=== PATIENT | male | born 1950 | race Caucasian/White ===

== ENCOUNTER 2017-06-04 10:46 | Emergency (ER) | payer MEDICARE ==
[~2017-06-04] VITALS: Ht 170.2 cm; Wt 72.6 kg
[~2017-06-04 10:46] MED LIST: (None)20 M1 PO; ALBU3IS INH; ASPI81CH PO; ATOR80 PO; BENZ100A PO; Bactrim Ds Tab1 EACH PO; CEPH500 PO; CLOP75 PO; Cipro500 MG PO; Doxazosin Mesyla2 MG PO; ESCI5 PO; GABA300; GLIP5 PO; HYDACE5 PO; HYDACE5325; HYDACE7.5 PO; METF500 PO; MORP15ER PO; Norco 10-325 T1 EACH PO; Norco 7.5-3251 EACH PO; PREG150 PO; Prednisone20 MG PO; SENN187 PO; TAMS.4ER PO; TRAZ50 PO; VENLAFAXINE HC150 MG PO; Zithromax250 MG PO
[2017-06-04 12:12] LABS: BASOPHILS ABSOLUTE AUTO 0.08 K/mm3 (0.00-0.23); BASOPHILS PERCENT AUTO 1 % (0-2); EOSINOPHILS ABSOLUTE AUTO 0.23 K/mm3 (0.00-0.68); EOSINOPHILS PERCENT AUTO 2 % (0-6); Hematocrit 44.1 % (37.0-53.0); Hemoglobin 14.4 g/dL (13.5-17.5); IMMATURE GRAN ABSOLUTE AUTO 0.07 K/mm3 (0.00-0.10); IMMATURE GRAN PERCENT AUTO 1 % (0-1); LYMPHOCYTES ABSOLUTE AUTO 2.55 K/mm3 (0.84-5.20); LYMPHOCYTES PERCENT AUTO 23 % (21-46); MONOCYTES ABSOLUTE AUTO 0.68 K/mm3 (0.16-1.47); MONOCYTES PERCENT AUTO 6 % (4-13); Mean Corpuscular HGB 29.6 pg (26.0-34.0); Mean Corpuscular HGB Conc 32.7 g/dL (31.5-36.5); Mean Corpuscular Volume 91 fL (80-100); Mean Platelet Volume 10.3 fL (9.1-12.4); NEUTROPHILS ABSOLUTE AUTO 7.34 K/mm3 (1.96-9.15); NEUTROPHILS PERCENT AUTO 67 % (41-73); Platelet Count 337 K/mm3 (150-400); RDW Coefficient Variation 14.7 % (11.7-14.2); RDW Standard Deviation 49.3 fL (35.1-46.3); Red Blood Cell Count 4.87 M/mm3 (4.30-5.90); White Blood Cell Count 10.95 K/mm3 (4.00-11.30)
[2017-06-04 12:22] LABS: Alanine Aminotransfer (ALT/SGP 33 U/L (12-78); Albumin/Globulin Ratio 1.1 (0.8-1.8); Alk Phos 88 U/L (50-136); Anion Gap 8 mmol/L (6-16); Aspartate Aminotrans (AST/SGOT 21 U/L (12-37); Bilirubin, Total 0.6 mg/dL (0.1-1.0); Blood Urea Nitrogen 12 mg/dL (8-24); Bun/Creatinine Ratio 17.6 (12.0-20.0); CO2, Blood 27 mmol/L (21-32); Calcium, Blood 8.8 mg/dL (8.5-10.1); Chloride, Blood 106 mmol/L (98-108); Creatinine, Blood 0.68 mg/dL (0.60-1.20); Globulin, Blood 3.7 g/dL (2.2-4.0); Glomerular Filtration Rate >60 (60-); Glucose, Blood 90 mg/dL (70-99); Potassium, Blood 3.8 mmol/L (3.5-5.5); Sodium, Blood 141 mmol/L (136-145); Total Protein, Blood 7.7 g/dL (6.4-8.2)
[2017-06-04] MEDS ORDERED: PREG150 PO (14:41)
[2017-06-04 14:54] LABS: Influenza A Negative (NEGATIVE); Influenza B Negative (NEGATIVE)
== END 2017-06-04 16:32 | disposition home or self-care (01) ==
LOC: ER 10:46
PROVIDERS: Emergency Medicine
DX: J44.1 Chronic obstructive pulmonary disease with (acute) exacerbation (principal); J11.1 Influenza due to unidentified influenza virus with other respiratory manifestations; E11.9 Type 2 diabetes mellitus without complications; F17.210 Nicotine dependence, cigarettes, uncomplicated; Z86.73 Personal history of transient ischemic attack (TIA), and cerebral infarction without residual deficits
CPT/HCPCS: 36415; 71046; 80053; 82947; 85025; 87804; 94644; 96360; 96361; 99283; J7030

== ENCOUNTER 2018-08-26 18:15 | Inpatient (IN) | payer MEDICARE ==
[~2018-08-26] VITALS: Ht 175.3 cm; Wt 69.9 kg
[~2018-08-26 18:15] MED LIST changes: -METF500 PO; +METF500C PO
[2018-08-26 19:28] LABS: BASOPHILS ABSOLUTE AUTO 0.04 K/mm3 (0.00-0.23); BASOPHILS PERCENT AUTO 1 % (0-2); Hematocrit 41.6 % (37.0-53.0); Hemoglobin 13.6 g/dL (13.5-17.5); LYMPHOCYTES ABSOLUTE AUTO 1.92 K/mm3 (0.84-5.20); LYMPHOCYTES PERCENT AUTO 25 % (21-46); MONOCYTES ABSOLUTE AUTO 1.32 K/mm3 (0.16-1.47); MONOCYTES PERCENT AUTO 17 % (4-13); Mean Corpuscular HGB 29.4 pg (26.0-34.0); Mean Corpuscular HGB Conc 32.7 g/dL (31.5-36.5); Mean Corpuscular Volume 90 fL (80-100); Mean Platelet Volume 10.4 fL (9.1-12.4); Platelet Count 390 K/mm3 (150-400); RDW Coefficient Variation 15.3 % (11.7-14.2); RDW Standard Deviation 50.9 fL (35.1-46.3); Red Blood Cell Count 4.62 M/mm3 (4.30-5.90); White Blood Cell Count 7.81 K/mm3 (4.00-11.30)
[2018-08-26 19:39] LABS: EOSINOPHILS ABSOLUTE AUTO 0.02 K/mm3 (0.00-0.68); EOSINOPHILS PERCENT AUTO 0 % (0-6); IMMATURE GRAN ABSOLUTE AUTO 0.04 K/mm3 (0.00-0.10); IMMATURE GRAN PERCENT AUTO 1 % (0-1); NEUTROPHILS ABSOLUTE AUTO 4.47 K/mm3 (1.96-9.15); NEUTROPHILS PERCENT AUTO 57 % (41-73)
[2018-08-26 19:49] LABS: Alanine Aminotransfer (ALT/SGP 13 U/L (12-78); Albumin, Blood 2.6 g/dL (3.4-5.0); Albumin/Globulin Ratio 0.6 (0.8-1.8); Alk Phos 64 U/L (50-136); Anion Gap 10 mmol/L (6-16); Aspartate Aminotrans (AST/SGOT 11 U/L (12-37); Bilirubin, Total 0.3 mg/dL (0.1-1.0); Blood Urea Nitrogen 11 mg/dL (8-24); CO2, Blood 24 mmol/L (21-32); Calcium, Blood 8.1 mg/dL (8.5-10.1); Chloride, Blood 99 mmol/L (98-108); Creatinine, Blood 0.69 mg/dL (0.60-1.20); Glomerular Filtration Rate >60 (60-); Glucose, Blood 136 mg/dL (70-99); Potassium, Blood 3.4 mmol/L (3.5-5.5); Sodium, Blood 133 mmol/L (136-145); Total Protein, Blood 6.6 g/dL (6.4-8.2)
[2018-08-26] MEDS ORDERED: TAMS.4ER PO (20:15)
[2018-08-26] MEDS ORDERED: Norco 10-325 T1 EACH PO (20:16)
[2018-08-26 21:59] LABS: Source, Urine Clean Catch
[2018-08-26 22:01] LABS: Blood, Urine Neg (Neg); Glucose Qualitative, Urine Neg (Neg); Ketones, Urine 3+ (Neg); Leukocyte Esterase, Urine 1+ (Neg); Nitrite, Urine Neg (Neg); Protein, Urine 1+ (Neg); Specific Gravity, Urine 1.015 (1.003-1.022); Urobilinogen, Urine 2+ (Normal)
[2018-08-26 22:07] LABS: Bilirubin, Urine 1+ (Neg)
[2018-08-26 22:08] LABS: Appearance, Urine Clear (Clear); Color, Urine Amber (P-Yellow); Red Blood Cells, Urine Not Seen /hpf (0-2); White Blood Cells, Urine Rare /hpf (0-5)
[2018-08-26 22:09] LABS: Bacteria Few /hpf; Squamous Epithelial Cells Rare /hpf (Few)
[2018-08-27 06:48] LABS: International Normalized Ratio 1.21; Prothrombin Time Results 12.6 Sec (9.7-11.5)
[2018-08-27 06:59] LABS: Alanine Aminotransfer (ALT/SGP 9 U/L (12-78); Albumin, Blood 2.2 g/dL (3.4-5.0); Albumin/Globulin Ratio 0.7 (0.8-1.8); Alk Phos 56 U/L (50-136); Anion Gap 10 mmol/L (6-16); Aspartate Aminotrans (AST/SGOT 8 U/L (12-37); Bilirubin, Total 0.5 mg/dL (0.1-1.0); Blood Urea Nitrogen 10 mg/dL (8-24); Bun/Creatinine Ratio 16.1 (12.0-20.0); CO2, Blood 22 mmol/L (21-32); Calcium, Blood 7.6 mg/dL (8.5-10.1); Chloride, Blood 104 mmol/L (98-108); Creatinine, Blood 0.62 mg/dL (0.60-1.20); Globulin, Blood 3.3 g/dL (2.2-4.0); Glomerular Filtration Rate >60 (60-); Glucose, Blood 106 mg/dL (70-99); Potassium, Blood 3.3 mmol/L (3.5-5.5); Sodium, Blood 136 mmol/L (136-145); Total Protein, Blood 5.5 g/dL (6.4-8.2)
--- NOTE | 2018-08-27 14:37 | NUR ---
AT BEDSIDE: DR CHRISTENSEN AT BEDSIDE TO ASSESS PT. REPORTS TO THIS RN TO CONTINUE TO MONITOR PT ABDOMEN IS NOTED TO BE SOFT UPON PALPATION. NO SURGICAL INTERVENTION AT THIS TIME.
--- NOTE | 2018-08-27 16:30 | NUR ---
UPDATE: NO CHANGE TO HEART RATE DURING AND AFTER BOLUS, PT HR NOTED TO BE BETWEEN 180'S AND 200'S CALL TO DR MADRID. BLOOD PRESSURE NOTED TO INCREASE LEVOPHED PLACED ON HOLD. RECEIVED ORDER FOR METOPROLOL 2.5 MG IV STATE THEN TO REPEAT IF HR DOES NOT DECREASE. ALSO PT BREATHING IS NOTED TO BE SHALLOW AND TACHY BIPAP ORDERED 10/5 FIO2 OF 40%.
--- NOTE | 2018-08-27 16:43 | NUR ---
EKG AQUIRED: HR NOTED TO DECREASE DOWN TO 140-160'S EKG AQUIRED. DENISE MAY RN CALLED AND RECEIVED ORDERS FOR AMIODERONE FROM DR MADRID.
--- NOTE | 2018-08-27 16:50 | NUR ---
DR @ BEDSIDE: DR LOPEZ AT BEDSIDE DISCUSSES CHANGING STATUS TO SURGICAL.
--- NOTE | 2018-08-27 17:55 | NUR ---
BLADDER SCAN: ORDER TO BLADDER SCAN AND PT NOTED TO HAVE 470ML IN BLADDER. OVERHEAD PAGED DR LOPEZ AT THIS TIME, UNABLE TO GET A HOLD OF BY PHONE.
--- NOTE | 2018-08-27 18:04 | NUR ---
NEW ORDERS: RECEIVED ORDERS FROM DR LOPEZ TO PLACE TYSON CATH FOR RETENTION. ORDERS RECEIVED TO TRANSFER TO SURGICAL FLOOR.
--- NOTE | 2018-08-27 18:25 | NUR ---
SHIFT SUMMARY: PT HAS NOT APPEARED TO HAVE ANY ACUTE DISTRESS SINCE ARIVAL TO THE ICU. NO CHANGES NOTED IN ASSESSMENT. PT HAS REMAINED A/O X 3. MILD TO MODERATE PAIN R/T ABD DISTENTION AND CRAMPING. BLADDER SCAN NOTED TO HAVE 470ML OF FLUID IN BLADDER ORDER FOR TYSON. PT HAS DENIED NAUSEA, NO VOMITING NOTED. PT UP TO TOILET ONCE THIS SHIFT, BUT WAS UNABLE TO HAVE BM OR URINATE. PT STATES HE IS UNABLE TO SIGN ADMIT PAPERWORK WILL NOTIFY CATHRYN RN. PT IS NOTED TO HAVE CHRONIC SPEACH DIFFICULTIES AND SLURED SPEECH R/T HX OF CVA. VSS AT THIS TIME.
--- NOTE | 2018-08-27 18:30 | NUR ---
PICC: AFTER TALKING TO DR MADRID ORDER FOR NEW PICC LINE ORDERED NEEDS TO BE PLACED D/T LINE NOT IN CORRECT LOCATION. PICC RN NOTIFIED.
[2018-08-27 19:22] LABS: Source, Urine Catheter
[2018-08-27 19:24] LABS: Blood, Urine Neg (Neg); Glucose Qualitative, Urine Neg (Neg); Ketones, Urine 4+ (Neg); Leukocyte Esterase, Urine 1+ (Neg); Nitrite, Urine Neg (Neg); Protein, Urine 2+ (Neg); Urobilinogen, Urine 1+ (Normal)
--- NOTE | 2018-08-27 19:30 | NUR ---
ASSUME CARE: REPORT RECIEVED FROM OFF GOING RN KEVIN. RESTS QUIETLY WHEN UNDISTURBED. MONITOR INTACT SHOWING SINUS RHYTHM. HEART RATE 80'S. DENIES DISCOMFORT/NEED OF PAIN MED. LUNGS WITH COARSE WHEEZES T/O. ABDOMEN SOFT TENDER WITH TYMPANIC BOWEL SOUNDS. REPOSITIONS SELF IN BED. TOLERATES SWABS WITH ICE CHIPS. PEDAL PULSES PRESENT NO EDEMA NOTED. COOPERATIVE TO CARES. IN TO SEE. CONSENTS SIGNED FOR BLOOD AND RELEASE OF PATIENT INFORMATION. CODE WORD ESTABLISHED. CONTINUE TO MONITOR AND REPORT CHANGE IN PATIENT CONDITION. TYSON PATENT DRAINING DARK MANNIE URINE.
[2018-08-27 19:36] LABS: Bilirubin, Urine 1+ (Neg)
[2018-08-27 19:40] LABS: Appearance, Urine Hazy (Clear); Color, Urine Yellow (P-Yellow)
[2018-08-27 19:41] LABS: Bacteria Few /hpf; Squamous Epithelial Cells Few /hpf (Few)
[2018-08-28 04:09] LABS: Hematocrit 35.6 % (37.0-53.0); Hemoglobin 11.6 g/dL (13.5-17.5); Mean Corpuscular HGB 28.9 pg (26.0-34.0); Mean Corpuscular HGB Conc 32.6 g/dL (31.5-36.5); Mean Corpuscular Volume 89 fL (80-100); Platelet Count 407 K/mm3 (150-400); RDW Coefficient Variation 15.3 % (11.7-14.2); RDW Standard Deviation 50.1 fL (35.1-46.3); Red Blood Cell Count 4.01 M/mm3 (4.30-5.90)
[2018-08-28 04:26] LABS: Anion Gap 9 mmol/L (6-16); Blood Urea Nitrogen 8 mg/dL (8-24); Bun/Creatinine Ratio 14.1 (12.0-20.0); CO2, Blood 23 mmol/L (21-32); Calcium, Blood 7.5 mg/dL (8.5-10.1); Chloride, Blood 107 mmol/L (98-108); Creatinine, Blood 0.57 mg/dL (0.60-1.20); Glomerular Filtration Rate >60 (60-); Glucose, Blood 86 mg/dL (70-99); Potassium, Blood 3.4 mmol/L (3.5-5.5); Sodium, Blood 139 mmol/L (136-145)
[2018-08-28 04:38] LABS: BAND PERCENT MAN 15 % (0-8); BASOPHILS ABSOLUTE MAN 0.07 K/mm3 (0.00-0.23); BASOPHILS PERCENT MAN 1 % (0-2); EOSINOPHILS PERCENT MAN 0 % (0-6); LYMPHOCYTES PERCENT MAN 19 % (21-46); MONOCYTES ABSOLUTE MAN 0.94 K/mm3 (0.16-1.47); MONOCYTES PERCENT MAN 12 % (4-13); NEUTROPHILS ABSOLUTE MAN 5.37 K/mm3 (1.96-9.15); SEG NEUTROPHILS PERCENT MAN 53 % (41-73); TOTAL CELLS COUNTED 100
--- NOTE | 2018-08-28 05:46 | NUR ---
SHIFT SUMMARY: RESTS QUIETLY WHEN UNDISTURBED. LUNG SOUNDS COARSE WITH WHEEZES T/O RESPIRATIONS TACHY. 26-34. SPO2 95-98% WITH O2 IN PLACE AT 2L/MIN. STATES "I CAN'T BREATH " REFUSES UDN. ABDOMEN SOFT/TENDER WITH BOWEL SOUNDS. TYSON PATENT DRAINING DARK MANNIE URINE. PEDAL PULSES PRESENT NO EDEMA NOTED. SPEECH IS SLURRED HOWEVER UNDERSTANDABLE. SECONDARY TO PAST CVA. CONTIUE TO MONITOR AND REPORT CHANGE IN PATIENT CONDITION.
--- NOTE | 2018-08-28 11:28 | NUR ---
REASSESSMENT: PT HAD A CLEAR LIQUID BREAKFAST THIS MORNING AND TOLERATED IT WELL SO DIET ADVANCED TO ADA DIET. PT STATES HIS STOMACH IS FEELING A LITTLE BETTER TODAY. MIRALAX AND SENNA GIVEN THIS MORNING AND DULCOLAX SUPPOSITORY JUST GIVEN PER DR. VINCENT'S ORDERS TO GIVE THE SUPPOSITORY ABOUT 3 HOURS AFTER THE MIRALAX. PT'S FLOMAX ALSO GIVEN THIS MORNING AND SWITCHED TO AM DOSING PER DR. LOPEZ'S ORDER. PT HAS BEEN RESTING IN BED. HE ATE ICE CHIPS THROUGHOUT THE MORNING. LUNGS REMAIN COARSE AND WHEEZY BUT HE MAINTAINS SPO2 GREATER THAN 90% ON RA. HE WAS SR WHEN THE MONITOR WAS ON. BP STABLE. PLAN TO DC MARBELLA AFTER PT HAS A LARGE BM PER DR. LOPEZ'S ORDER. PT'S FRIEND CAME IN AND WAS UPDATED. CONTINUE TO MONITOR.
--- NOTE | 2018-08-28 12:32 | NUR ---
PT TRANSFERED TO RM 232. REPORT GIVEN TO KULDIP TAVERA. ALL BELONGINGS TRANSFERRED WITH PT. PT'S FRIEND WITH HIM AT TIME OF TRANSFER. PT TOLERATED TRANSFER WELL.
--- NOTE | 2018-08-28 12:50 | NUR ---
PT ARRIVED TO ROOM 232 FROM ICU PT HELPED INTO THE BATHROOM FOR BM PT WANTING TO TRY A SANDWHICH
--- NOTE | 2018-08-28 14:09 | NUR ---
pt in bed had small amt of his lunch family at bedside had loose bm
--- NOTE | 2018-08-28 17:53 | NUR ---
MORPHINE 2 MG IVP GIVEN PER NEW ORDER PO PAIN MEDS ON HOLD PER DR JIMENES AT THIS TIME WILL RE EVAL IN AM PER DR LOPEZ AND HOW PT CONSTIPATION IS RESOLVING PT IS EATING DINNER
--- NOTE | 2018-08-29 06:37 | NUR ---
LYING IN SEMI FOWLERS WITH EYES CLOSED. NO CHANGES SINCE START OF SHIFT. DENIES FURTHER NEEDS AT THIS TIME. SAFETY MEASURES IN PLACE. WILL GIVE HAND OFF TO ONCOMING SHIFT USING SBAR.
--- NOTE | 2018-08-29 18:00 | NUR ---
summary 3 bile colored liquid stools throughout shift. patient ambulated in halls x2, slightly unsteady on feet and needs reminded to slow gait. patient medicated x1 for pain in feet. patient denies nausea or abd pain
--- NOTE | 2018-08-29 18:06 | NUR ---
iv no iv access at this time, contacted procedure nurse who will place powerglide when available to do so
--- NOTE | 2018-08-30 06:29 | NUR ---
LYING IN SEMI FOWLERS WITH EYES CLOSED. HAS NOT SUCCESSFULLY EMPTIED BOWELS AFTER CONSUMING 2L OF GOLYTELY. SPIKED A NELSY THIS MORNING OF 100.7, TYLENOL GIVEN PER ORDERS. MEDICATED FOR PAIN X1 THIS SHIFT. NO FURTHER CHANGES SINCE START OF SHIFT. SAFETY MEASURES IN PLACE. WILL GIVE HAND OFF TO ONCOMING SHIFT USING SBAR.
--- NOTE | 2018-08-30 07:20 | NUR ---
REPORT FROM RESHMA CHRISTIANSEN. ASSUMED PT CARE.
--- NOTE | 2018-08-30 08:30 | NUR ---
PT ASSISTED BACK TO BED. PT STEADY ON FEET. SCANT LOOSE BROWN STOOL TO BSC. COMMODE CLEANED. FLOOR CLEANED. GARBAGE EMPTIED. PT DENIES PAIN AT THIS TIME, JUST "SOME DISCOMFORT". PT DENIES NAUSEA. ASSESSMENT CHARTED. PT MEDICATED PER EMAR.
--- NOTE | 2018-08-30 09:31 | NUR ---
DR GRECO TO ROOM FOR EVAL AND ASSESSMENT. PLAN TO LOOK OVER NOTES AND CONSULT SURGEON IF NOT DONE AND POSSIBLY REPEAT IMAGING.
--- NOTE | 2018-08-30 10:28 | NUR ---
PT RESTING IN POSITION OF COMFORT. DICK.
--- NOTE | 2018-08-30 11:45 | NUR ---
700ML GOLYTELY PLACED IN PLASTIC CUP. PT AWARE HE NEEDS TO CONT TO DRINK GOLYTELY.
--- NOTE | 2018-08-30 12:46 | NUR ---
PT MEDICATED PER EMAR. PT SITTING ON BSC. ICE WATER PROVIDED. PT DRINKING GOLYTELY.
--- NOTE | 2018-08-30 13:39 | NUR ---
PT MEDICATED WITH TYLENOL FOR ABD PAIN AND SCHED LYRICA. COMMODE CLEANED. TYSON EMPTIED.
--- NOTE | 2018-08-30 15:10 | NUR ---
PALLIATIVE CARE NURSE AT BEDSIDE. PT DRANK 400ML OF GOLYTELY. NO MORE STOOLS. PT C/O ABD PAIN 7/10, CRAMPING AND PRESSURE. WILL DISCUSS POSS USE OF TORADOL WITH PROVIDER.
--- NOTE | 2018-08-30 15:34 | NUR ---
DRESSING TO IV CHANGED. PT RAND WELL.
--- NOTE | 2018-08-30 15:37 | NUR ---
Initial Visit: Palliative Care Consult for AD/POLST. Pt is A&Ox3. He has difficulty with giving current year. He appears to be experiencing expressive aphasia as evidenced by difficulty with speaking words. Pt reports 7/10 pain in his abdomen and no benfet with Tylenol for pain. He reports the morphine is beneficial. Pt's grandson Rahul is present during visit. Pt reports that he lives at home with his in [place] and is of Gnosticist lizy. He reports adequate support from his family for any care needs. Pt reports that he uses a walker or cane when ambulating at home. He reports that he does not needs assistance with bathing and dressing. No issues with incontinence. Engaged in discussion regarding AD/POLST. Pt expresses interest in AD. Educated Pt on each section to complete including risk factors of life staining measures. Educated on importance of having a healthcare labor union business representative. Pt reports that he will complete POLST after discussing with his . Pt reports no other concerns. Spoke with Pt's bedside nurse Yassine regarding Pt's unmanged pain and options for pain control. Yassine is agreeable to contact Dr Cabrera and request Toradol or Tramadol for pain management. Goal is to avoid frequent use of opioid medications that may worsen current bowel issues. Plan: Will remain available for symptom management.
--- NOTE | 2018-08-30 16:02 | NUR ---
PT MEDICATED WITH 2MG IV MORPHINE. CALL LIGHT IN REACH. PT WATCHING TV.
--- NOTE | 2018-08-30 16:40 | NUR ---
PT STILL HAVING SOME ABD PAIN. PT DRINKING GOLYTELY.
--- NOTE | 2018-08-30 17:50 | NUR ---
PT RESTING IN POSITION OF COMFORT. WATCHING TV. SIPPING GOLYTELY.
--- NOTE | 2018-08-30 18:45 | NUR ---
PT DRANK ANOTHER 100ML OF GOLYTELY. VOL AT 700ML IN PLASTIC CUP. PT UP TO BSC. C/O ABD PAIN.
--- NOTE | 2018-08-30 19:09 | NUR ---
REPORT TO RESHMA CHRISTIANSEN.
[2018-08-31 04:38] LABS: BASOPHILS ABSOLUTE AUTO 0.02 K/mm3 (0.00-0.23); BASOPHILS PERCENT AUTO 0 % (0-2); EOSINOPHILS ABSOLUTE AUTO 0.07 K/mm3 (0.00-0.68); EOSINOPHILS PERCENT AUTO 1 % (0-6); Hematocrit 36.4 % (37.0-53.0); Hemoglobin 12.3 g/dL (13.5-17.5); IMMATURE GRAN PERCENT AUTO 1 % (0-1); LYMPHOCYTES PERCENT AUTO 12 % (21-46); MONOCYTES ABSOLUTE AUTO 1.16 K/mm3 (0.16-1.47); MONOCYTES PERCENT AUTO 9 % (4-13); Mean Corpuscular HGB 29.1 pg (26.0-34.0); Mean Corpuscular HGB Conc 33.8 g/dL (31.5-36.5); Mean Platelet Volume 9.7 fL (9.1-12.4); NEUTROPHILS ABSOLUTE AUTO 9.68 K/mm3 (1.96-9.15); NEUTROPHILS PERCENT AUTO 77 % (41-73); Platelet Count 480 K/mm3 (150-400); RDW Standard Deviation 47.6 fL (35.1-46.3); Red Blood Cell Count 4.22 M/mm3 (4.30-5.90); White Blood Cell Count 12.53 K/mm3 (4.00-11.30)
[2018-08-31 04:49] LABS: Mean Corpuscular Volume 86 fL (80-100)
--- NOTE | 2018-08-31 05:00 | NUR ---
CURRENTLY SITTING ON BSC, LINEN AND GOWN CHANGE COMPLTED. CALLED HOUSEKEEPING FOR FLOOR MOPPING AFTER PT HAD A LARGE LIQUID BM IN BED AND ON FLOOR TRYING TO AMBULATE TO BSC. SAFETY MEASURES IN PLACE. WILL CONTINUE TO DELTA.
[2018-08-31 05:16] LABS: Albumin, Blood 1.9 g/dL (3.4-5.0); Anion Gap 9 mmol/L (6-16); Blood Urea Nitrogen 7 mg/dL (8-24); Bun/Creatinine Ratio 12.7 (12.0-20.0); CO2, Blood 28 mmol/L (21-32); Calcium, Blood 7.5 mg/dL (8.5-10.1); Chloride, Blood 99 mmol/L (98-108); Creatinine, Blood 0.55 mg/dL (0.60-1.20); Glomerular Filtration Rate >60 (60-); Glucose, Blood 106 mg/dL (70-99); Phosphorus, Blood 2.5 mg/dL (2.5-4.9); Potassium, Blood 2.5 mmol/L (3.5-5.5); Sodium, Blood 136 mmol/L (136-145)
--- NOTE | 2018-08-31 05:45 | NUR ---
SOILED FLOOR AGAIN AFTER HAVING GOTTEN HIMSELF BACK INTO BED WITHOUT CALLING FOR ASSISTANCE AND THEN EXITING THE BED RAPIDLY IN ORDER TO GET TO BSC. SAFETY MEASURES IN PLACE. WILL CONTINUE TO MONITOR.
--- NOTE | 2018-08-31 06:18 | NUR ---
LARGE LIQUID BROWN BM WITH LARGE PARTICULATES EMPTIED FROM BSC. PT'S ABDOMEN LESS DISTENDED. STATES THAT HE PASSED ALOT OF GAS WELL. SAFETY MEASURES IN PLACE. WILL CONTINUE TO MONITOR.
--- NOTE | 2018-08-31 06:20 | NUR ---
LYING IN SEMI FOWLERS WITH EYES CLOSED. PARTIAL SUCCESS EMPTYING BOWELS AFTER SECOND ROUND OF GOLYTELY. MEDICATED FOR PAIN X1 THIS SHIFT. NO FURTHER CHANGES SINCE START OF SHIFT. SAFETY MEASURES IN PLACE. WILL GIVE HAND OFF TO ONCOMING SHIFT USING SBAR.
--- NOTE | 2018-08-31 06:54 | NUR ---
X-RAY AT BEDSIDE TO TAKE PT FOR ABD SERIES ORDERED.
--- NOTE | 2018-08-31 07:05 | NUR ---
PT RETURNED FROM IMAGING. ON BSC.
--- NOTE | 2018-08-31 08:00 | NUR ---
PT BACK IN BED, APPEARS TO BE RESTING, EYES CLOSED. RESP EVEN AND NON LABORED.
--- NOTE | 2018-08-31 08:35 | NUR ---
PT MEDICATED WITH SCHEDULED MEDS PER EMAR. C/O MILD ABD PAIN, TYLENOL PROVIDED. ASSESSMENT CHARTED. CALL LIGHT IN REACH. PT ABD STILL DISTENDED BY SOFT.
--- NOTE | 2018-08-31 09:55 | NUR ---
DR GRECO TO ROOM FOR EVAL AND ASSESSMENT. PT TO BE NPO UNTIL DR FERMIN TRIMBLEALS. PT AWARE, DR GRECO TO SPEAK WITH DR CHRISTENSEN.
--- NOTE | 2018-08-31 10:10 | NUR ---
DC STAFF RESPIRATORY THERAPIST TO ROOM TO DISCUSS POTENTIAL HOME NEEDS WITH PT. DC STAFF RESPIRATORY THERAPIST GEOVANY HAD A HARD TIME UNDERSTANDING PT.
--- NOTE | 2018-08-31 11:00 | NUR ---
PT TO IMAGING FOR CT VIA WC.
--- NOTE | 2018-08-31 11:18 | NUR ---
PT RETURNED FROM IMAGING. STOOLED HIMSELF.
--- NOTE | 2018-08-31 11:42 | NUR ---
AFTER RETURNING FROM IMAGING PT HAD STOOLED HIMSELF. ASSISTED PT TO SHOWER AND BATHED HIM. BED CHANGED, COMMODE AND TYSON EMPTIED. PT IN CLEAN GOWN AND SOCKS. ASSISTED BACK TO BED, IV K STARTED PER EMAR.
--- NOTE | 2018-08-31 14:19 | NUR ---
DR CHRISTENSEN TO ROOM FOR RE-EVAL AND UPDATE. PLAN TO ALLOW SIPS AND CHIPS, LABS TOMORROW AND SEE HOW HE FEELS TOMORROW. EXPLAINED TO PT THAT CT DOESNT SHOW WORSENING OF SWELLING/INFLAMMATION BUT THAT THERE IS STILL A SIG AMOUNT OF STOOL IN INTESTINES.
--- NOTE | 2018-08-31 16:03 | NUR ---
RESP STAFF AT BEDSIDE FOR NEB. PT MEDICATED WITH 2MG MORPHINE FOR C/O PAIN TO FOOT. PT BACK IN BED. DENIES NAUSEA.
--- NOTE | 2018-08-31 16:45 | NUR ---
PT MORE COMFORTABLE AT THIS TIME.
--- NOTE | 2018-08-31 17:15 | NUR ---
PT UP TO BSC. FAMILY AT BEDSIDE.
--- NOTE | 2018-08-31 17:45 | NUR ---
PT BACK TO BED. SCANT BM NOTED. TYSON EMPTIED.
[2018-09-01 03:59] LABS: BASOPHILS ABSOLUTE AUTO 0.02 K/mm3 (0.00-0.23); BASOPHILS PERCENT AUTO 0 % (0-2); EOSINOPHILS ABSOLUTE AUTO 0.09 K/mm3 (0.00-0.68); EOSINOPHILS PERCENT AUTO 1 % (0-6); Hematocrit 33.8 % (37.0-53.0); Hemoglobin 11.3 g/dL (13.5-17.5); IMMATURE GRAN ABSOLUTE AUTO 0.08 K/mm3 (0.00-0.10); IMMATURE GRAN PERCENT AUTO 1 % (0-1); LYMPHOCYTES ABSOLUTE AUTO 1.79 K/mm3 (0.84-5.20); LYMPHOCYTES PERCENT AUTO 16 % (21-46); MONOCYTES ABSOLUTE AUTO 1.29 K/mm3 (0.16-1.47); MONOCYTES PERCENT AUTO 11 % (4-13); Mean Corpuscular HGB 28.8 pg (26.0-34.0); Mean Corpuscular HGB Conc 33.4 g/dL (31.5-36.5); Mean Corpuscular Volume 86 fL (80-100); Mean Platelet Volume 9.4 fL (9.1-12.4); NEUTROPHILS ABSOLUTE AUTO 8.08 K/mm3 (1.96-9.15); NEUTROPHILS PERCENT AUTO 71 % (41-73); Platelet Count 473 K/mm3 (150-400); RDW Coefficient Variation 15.2 % (11.7-14.2); RDW Standard Deviation 47.8 fL (35.1-46.3); Red Blood Cell Count 3.92 M/mm3 (4.30-5.90); White Blood Cell Count 11.35 K/mm3 (4.00-11.30)
[2018-09-01 04:14] LABS: Anion Gap 8 mmol/L (6-16); Blood Urea Nitrogen 7 mg/dL (8-24); Bun/Creatinine Ratio 13.8 (12.0-20.0); CO2, Blood 28 mmol/L (21-32); Calcium, Blood 7.5 mg/dL (8.5-10.1); Chloride, Blood 100 mmol/L (98-108); Creatinine, Blood 0.51 mg/dL (0.60-1.20); Glomerular Filtration Rate >60 (60-); Glucose, Blood 91 mg/dL (70-99); Potassium, Blood 2.6 mmol/L (3.5-5.5); Sodium, Blood 136 mmol/L (136-145)
--- NOTE | 2018-09-01 07:45 | NUR ---
TEMP IN ROOM TURNED DOWN WILL RE CHECK PT TEMP ALSO WILL ENCOURAGE IS RT BY EARLIER FOR NEB TX
--- NOTE | 2018-09-01 07:55 | NUR ---
SUMMARY I CALLED HOSPITALIST REMEDIOS REGARDING R/A SATS OF 86% WITH O2 2L PLACED.PT DENIED CP OR SOB. RT AND NURSE ALREADY WORKING WITH PT ON FLUTTER AND I.S. FOLLOWING INITIAL ASSESMENT OF RESP STATUS AND REVIEW OF ABD CT FINDINGS REGARDING LUNGS.DISCUSSED CURRENT ASSESSMENT MED HX,CURRENT VS,ALSO CONFIRMED REGARDING TELE IT WAS REMOVED DURING DAY AND WAS RECEIVED PER TILE ROOFER.I ALSO DISCUSSED TYSON ORDER PRIOR WAS TO D/C HOWEVER REPORTED TO THIS RN AND NOTED IN HOPSITALIST NOTE TO BE LEFT IN DUE TO RETENTION UNTIL FURTHER BMS AND AT PRESENT PT PASSING ONLY MUDDY WATER WITH LARGELY DISTENDED ABDOMEN, SEE ORDERS RECEIVED. PT RECEIVING MORPHINE IV FOR PAIN. FAMILY IN AND OUT OF ROOM AND CALLING WITH PT PERMISSION TO GIVE INFO. EACH WITH MULTIPLE QUESTIONS AND TIME INTENSIVE.EACH LEFT NUMBERS TO BE CALLED IF DR ABLE TODAY. DAY RN AWARE.
--- NOTE | 2018-09-01 10:25 | NUR ---
DR GRECO BY TO SEE PT IV AND ORAL KCL GIVEN ALSO TO MEASURE ANY STOOL
--- NOTE | 2018-09-01 15:36 | NUR ---
RT AT BEDSIDE GIVING NEB TX
--- NOTE | 2018-09-01 18:51 | NUR ---
pt req another broth pt at bedside earlier pt given iv morphine for pain in r foot pt asking if he will be given anymore med for bowel care beside uymi
--- NOTE | 2018-09-02 00:09 | NUR ---
PTS TYSON WAS DCD PER ORDERS TONIGHT AND PT UNCOMFORTABLE WITH MINIMAL VOID BLADDER SCAN 397 ML. PTS BILAT PEDAL PULSES NOTED WEAKER TONIGHT THAN PREVIOUS NIGHT.ALTHOUGH PT REPORTS FULL SENSATION TO FEET. PT CONT TO APPEAR DECONDITIONED AND WEAK.ABLE TO WALK FEW STEPS ONLY WITH ASSIST DUE TO WEAKENESS.PT IS ABLE TO REPOSITION SELF IN BED WITH EXCEPTION OF HIGHER UP TOWARD HEAD.FAMILY ASKING ABOUT PHYSICAL THERAPY.PT TAKING SIPS AND CHIPS PO PER ORDERS,WITH NO MAINLINE IV ORDERS NOTED.PTS REPORTED PT STATING HE WISHED HE WAS . I QUESTIONED PT REGARDING THIS AND PT VERB HE DOES NOT WISH TO HARM SELF AND WOULD NOT HARM SELF. VERB JUST FRUSTRATED OVER LENGTH OF TIME IN HOSPITAL WITH SLOW PROGRESS. ALSO REPORTS "I CAN NOT AFFORD THIS" I ADVISED PT WE WILL HAVE SOMEONE FROM HOSPITAL TALK WITH HIM ON MONDAY REGARDING HIS FINANCIAL CONCERNS. I SPOKE WITH DR HEDRICK AND ADVISED OF ABOVE. I RECEIVED ORDERS FOR STRAIGHT CATH X1,IV MAINLINE, AND PT CX CONCERNS.
[2018-09-02 04:45] LABS: Albumin, Blood 1.9 g/dL (3.4-5.0); Anion Gap 7 mmol/L (6-16); Blood Urea Nitrogen 6 mg/dL (8-24); Bun/Creatinine Ratio 12.3 (12.0-20.0); CO2, Blood 29 mmol/L (21-32); Calcium, Blood 7.7 mg/dL (8.5-10.1); Chloride, Blood 105 mmol/L (98-108); Creatinine, Blood 0.49 mg/dL (0.60-1.20); Glomerular Filtration Rate >60 (60-); Glucose, Blood 95 mg/dL (70-99); Phosphorus, Blood 2.1 mg/dL (2.5-4.9); Sodium, Blood 141 mmol/L (136-145)
--- NOTE | 2018-09-02 06:02 | NUR ---
SUMMARY PTS DAUGHTER REMAINING AT BEDSIDE TONIGHT. SUPPORTIVE.PT REQUIRED MORPHINE FOR PAIN. PT REPOSITIONING SELF IN BED, BUT NEEDS TO REMINDING TO SPEND EQUAL TIME ON BACK AND BOTH SIDES RATHER THAN PREDOMINANTLY R SIDE PT CONSISTENTLY MOVING SELF BACK TO R SIDE AND CURLS UP.R HIP BONE BECOMING RED, WELL R ELBOW. DISCUSSED RISKS WITH PT AND DAUGHTER. PLACED MEPILEX TO R ELBOW,R HIP,AND HEELS. PT ALREADY WITH ONE TO COCCYX. ABD REMAINS DISTENDED ALTHOUGH APPEARS SLIGHTLY DECREASED FROM YESTERDAY. C/O NAUSEA X 1 WHEN PROD COUGH OF CREAMY WHITE MUCUS. NO EMESIS. PT WITH NO BMS TONIGHT. STRAIGHT CATHED X 1 PER ORDERS AND ALSO VOIDING/INCONTINENCE.MAINLINE FLUIDS INFUSING. TOLERATING PO SIPS/CHIPS.
--- NOTE | 2018-09-02 07:40 | NUR ---
pt req neb tx for sob rt by to give tx discussed giving pt nebs every 4 hrs today and mobilizes pt in chair and amb will encourage flutter ls coarse t/o with exp wheezing wet cough abd dist hypo btx4
--- NOTE | 2018-09-02 13:33 | NUR ---
pt back into bed meds given family at bedside encourged pt and family to have him stay up longer and mobilize
--- NOTE | 2018-09-02 15:30 | NUR ---
pt oob in chair pt's left so pt's daughter could talk with her dad superviser notified she talked with pt's daughter re his cond wanting to speak with ss message left also wit pt advocate pt req his daughter leave after his and his daughter had an argument in the room dr cartagena also by to see pt
--- NOTE | 2018-09-02 18:13 | NUR ---
PT AMB IN HALLWAY BACK IN CHAIR MEDS GIVEN EATING DINNER
--- NOTE | 2018-09-02 18:55 | NUR ---
pt back into bed at bedside
--- NOTE | 2018-09-02 23:00 | NUR ---
ASSISTED TO BCS, HAD BM AND URINE. ALL EMPTIED AND CHARTED PER SPECIAL NEEDS LIBRARIAN. SAFETY MEASURES IN PLACE. WILL CONTINUE TO MONITOR.
--- NOTE | 2018-09-03 02:00 | NUR ---
ASSISTED TO BSC AND BACK TO BED, 400ML DARK MANNIE URINE NOTED IN BSC. SAFETY MEASURES IN PLACE. WILL CONTINUE TO MONITOR.
--- NOTE | 2018-09-03 04:18 | NUR ---
EXITED BED TO BSC FOR SMALL LIQUID BM. BSC AND FLOOR CLEANED BY NURSING AFTER PT ASSISTED BACK TO BED, TOLERATED WELL. C/O PAIN LEVEL OF 8/10, GIVEN PRN MORPHINE PER MD ORDERS. AUDIBLE WHEEZING NOTED, REQUESTED PRN BREATHING TREATMENT VIA RT. SAFETY MEASURES IN PLACE. WILL CONTINUE TO MONITOR.
[2018-09-03 04:59] LABS: BASOPHILS ABSOLUTE AUTO 0.02 K/mm3 (0.00-0.23); BASOPHILS PERCENT AUTO 0 % (0-2); EOSINOPHILS ABSOLUTE AUTO 0.05 K/mm3 (0.00-0.68); EOSINOPHILS PERCENT AUTO 0 % (0-6); Hematocrit 36.3 % (37.0-53.0); IMMATURE GRAN ABSOLUTE AUTO 0.13 K/mm3 (0.00-0.10); IMMATURE GRAN PERCENT AUTO 1 % (0-1); LYMPHOCYTES ABSOLUTE AUTO 1.98 K/mm3 (0.84-5.20); LYMPHOCYTES PERCENT AUTO 18 % (21-46); MONOCYTES ABSOLUTE AUTO 1.03 K/mm3 (0.16-1.47); MONOCYTES PERCENT AUTO 9 % (4-13); Mean Corpuscular HGB 28.6 pg (26.0-34.0); Mean Corpuscular HGB Conc 33.1 g/dL (31.5-36.5); Mean Corpuscular Volume 87 fL (80-100); Mean Platelet Volume 9.4 fL (9.1-12.4); NEUTROPHILS ABSOLUTE AUTO 8.04 K/mm3 (1.96-9.15); NEUTROPHILS PERCENT AUTO 71 % (41-73); Platelet Count 537 K/mm3 (150-400); RDW Coefficient Variation 15.4 % (11.7-14.2); RDW Standard Deviation 48.6 fL (35.1-46.3); Red Blood Cell Count 4.19 M/mm3 (4.30-5.90); White Blood Cell Count 11.25 K/mm3 (4.00-11.30)
[2018-09-03 05:17] LABS: Anion Gap 7 mmol/L (6-16); Blood Urea Nitrogen 5 mg/dL (8-24); Bun/Creatinine Ratio 10.2 (12.0-20.0); CO2, Blood 28 mmol/L (21-32); Calcium, Blood 7.6 mg/dL (8.5-10.1); Chloride, Blood 102 mmol/L (98-108); Creatinine, Blood 0.49 mg/dL (0.60-1.20); Glomerular Filtration Rate >60 (60-); Glucose, Blood 114 mg/dL (70-99); Phosphorus, Blood 2.8 mg/dL (2.5-4.9); Potassium, Blood 3.1 mmol/L (3.5-5.5); Sodium, Blood 137 mmol/L (136-145)
--- NOTE | 2018-09-03 06:36 | NUR ---
LYING IN SEMI FOWLERS WITH EYES CLOSED. MEDICATED FOR PAIN X2 THIS SHIFT. HAS HAD 3 SMALL BM. NO FURTHER CHANGES SINCE START OF SHIFT. SAFETY MEASURES IN PLACE. WILL GIVE HAND OFF TO ONCOMING SHIFT USING SBAR.
--- NOTE | 2018-09-03 17:46 | NUR ---
SHIFT SUMMARY PT SHOWS INCREASED ABDOMINAL DISTENTION. NO BM AND PT STATES NO PASSING OF GAS DURING SHIFT. PT IS ALERT AND ORIENTED AND ABLE TO TRANSFER TO BSC. PLAN IS FOR A CONSERVATIVE APPROACH TO MOVE BLOCKAGE. BOWEL CARE AND MIRALAX. PT IS ABLE TO URINATE, YELLOW URINE OUTPUT.
[2018-09-04 04:39] LABS: BASOPHILS ABSOLUTE AUTO 0.03 K/mm3 (0.00-0.23); BASOPHILS PERCENT AUTO 0 % (0-2); EOSINOPHILS ABSOLUTE AUTO 0.04 K/mm3 (0.00-0.68); EOSINOPHILS PERCENT AUTO 0 % (0-6); Hematocrit 35.4 % (37.0-53.0); Hemoglobin 11.6 g/dL (13.5-17.5); IMMATURE GRAN ABSOLUTE AUTO 0.13 K/mm3 (0.00-0.10); IMMATURE GRAN PERCENT AUTO 1 % (0-1); LYMPHOCYTES ABSOLUTE AUTO 1.87 K/mm3 (0.84-5.20); LYMPHOCYTES PERCENT AUTO 16 % (21-46); MONOCYTES ABSOLUTE AUTO 1.07 K/mm3 (0.16-1.47); MONOCYTES PERCENT AUTO 9 % (4-13); Mean Corpuscular HGB Conc 32.8 g/dL (31.5-36.5); Mean Corpuscular Volume 89 fL (80-100); Mean Platelet Volume 9.3 fL (9.1-12.4); NEUTROPHILS ABSOLUTE AUTO 8.29 K/mm3 (1.96-9.15); NEUTROPHILS PERCENT AUTO 73 % (41-73); Platelet Count 510 K/mm3 (150-400); RDW Coefficient Variation 15.4 % (11.7-14.2); RDW Standard Deviation 50.5 fL (35.1-46.3); White Blood Cell Count 11.43 K/mm3 (4.00-11.30)
[2018-09-04 04:56] LABS: Albumin, Blood 1.9 g/dL (3.4-5.0); Anion Gap 6 mmol/L (6-16); Blood Urea Nitrogen 6 mg/dL (8-24); Bun/Creatinine Ratio 11.4 (12.0-20.0); CO2, Blood 30 mmol/L (21-32); Calcium, Blood 7.6 mg/dL (8.5-10.1); Chloride, Blood 103 mmol/L (98-108); Creatinine, Blood 0.53 mg/dL (0.60-1.20); Glomerular Filtration Rate >60 (60-); Glucose, Blood 102 mg/dL (70-99); Phosphorus, Blood 2.7 mg/dL (2.5-4.9); Potassium, Blood 3.3 mmol/L (3.5-5.5); Sodium, Blood 139 mmol/L (136-145)
--- NOTE | 2018-09-04 06:14 | NUR ---
LYING IN SEMI FOWLERS WITH EYES CLOSED. MEDICATED FOR PAIN X1 THIS SHIFT. IS PRODUCING GAS AND HAD 1 VERY SMALL BM. NO FURTHER CHANGES SINCE START OF SHIFT. SAFETY MEASURES IN PLACE. WILL GIVE HAND OFF TO ONCOMING SHIFT USING SBAR.
--- NOTE | 2018-09-04 17:58 | NUR ---
SHIFT SUMMARY PT REPORTS PASSING GAS DURING SHIFT. NO BM OUT. ABDOMEN DISTENDED. PT CALLED FOR BREATHING TREATMENT X1 DURING SHIFT. SOME CONGESTION ENCOURAGE USE OF FLUTTER VALVE. PAIN X2 DURING SHIFT.
[2018-09-05 05:06] LABS: BASOPHILS ABSOLUTE AUTO 0.02 K/mm3 (0.00-0.23); BASOPHILS PERCENT AUTO 0 % (0-2); EOSINOPHILS ABSOLUTE AUTO 0.06 K/mm3 (0.00-0.68); EOSINOPHILS PERCENT AUTO 1 % (0-6); Hematocrit 36.3 % (37.0-53.0); Hemoglobin 11.9 g/dL (13.5-17.5); IMMATURE GRAN ABSOLUTE AUTO 0.17 K/mm3 (0.00-0.10); IMMATURE GRAN PERCENT AUTO 2 % (0-1); LYMPHOCYTES ABSOLUTE AUTO 1.84 K/mm3 (0.84-5.20); LYMPHOCYTES PERCENT AUTO 17 % (21-46); MONOCYTES ABSOLUTE AUTO 0.97 K/mm3 (0.16-1.47); MONOCYTES PERCENT AUTO 9 % (4-13); Mean Corpuscular HGB 29.3 pg (26.0-34.0); Mean Corpuscular HGB Conc 32.8 g/dL (31.5-36.5); Mean Corpuscular Volume 89 fL (80-100); Mean Platelet Volume 9.5 fL (9.1-12.4); NEUTROPHILS PERCENT AUTO 73 % (41-73); Platelet Count 558 K/mm3 (150-400); RDW Coefficient Variation 15.6 % (11.7-14.2); RDW Standard Deviation 51.7 fL (35.1-46.3); Red Blood Cell Count 4.06 M/mm3 (4.30-5.90); White Blood Cell Count 11.16 K/mm3 (4.00-11.30)
[2018-09-05 05:30] LABS: Alanine Aminotransfer (ALT/SGP 13 U/L (12-78); Albumin, Blood 2.1 g/dL (3.4-5.0); Albumin/Globulin Ratio 0.6 (0.8-1.8); Alk Phos 64 U/L (50-136); Anion Gap 7 mmol/L (6-16); Aspartate Aminotrans (AST/SGOT 6 U/L (12-37); Bilirubin, Total 0.5 mg/dL (0.1-1.0); Blood Urea Nitrogen 6 mg/dL (8-24); Bun/Creatinine Ratio 10.9 (12.0-20.0); CO2, Blood 28 mmol/L (21-32); Calcium, Blood 7.8 mg/dL (8.5-10.1); Chloride, Blood 103 mmol/L (98-108); Creatinine, Blood 0.55 mg/dL (0.60-1.20); Globulin, Blood 3.3 g/dL (2.2-4.0); Glomerular Filtration Rate >60 (60-); Glucose, Blood 94 mg/dL (70-99); Potassium, Blood 3.6 mmol/L (3.5-5.5); Sodium, Blood 138 mmol/L (136-145); Total Protein, Blood 5.4 g/dL (6.4-8.2)
--- NOTE | 2018-09-05 06:21 | NUR ---
LYING IN SEMI FOWLERS WITH EYES CLOSED. MEDICATED FOR PAIN X1 THIS SHIFT. IS PRODUCING GAS AND HAD 3 VERY SMALL BM'S. NO FURTHER CHANGES SINCE START OF SHIFT. SAFETY MEASURES IN PLACE. WILL GIVE HAND OFF TO ONCOMING SHIFT USING SBAR.
--- NOTE | 2018-09-05 19:39 | NUR ---
SHIFT SUMMARY PT CONTINUES TO HAVE LIQUID BROWN STOOLS. ABD REMAINS DISTENDED, FIRM AND TENDER. PAIN HAS BEEN MANAGED WITH IV MORPHINE. PT IS A SBA FOR AMBULATION BUT TRANSFERS TO THE BSC INDEPEDENTLY. PT TOLERATING A CLEAR LIQUID DIET. VSS. REPORT GIVEN TO SUSSY CHRISTIANSEN.
--- NOTE | 2018-09-06 05:32 | NUR ---
PT HAD NO ACUTE CHANGES T/O NIGHT; VSS. ABD DISTENDED/FIRM, BT HYPO, PT IS HAVING FREQUENT SMALL LIQ BM. PT RAND CLEAR LIQ PO, IS VOIDING LARGE AMTS URINE. PAIN MGD PER EMAR. PT UP OOB W/SBA, RAND WELL. WILL CONT TO MONITOR UNTIL REP GIVEN TO ONCOMING RN.
[2018-09-06 06:00] LABS: BASOPHILS ABSOLUTE AUTO 0.03 K/mm3 (0.00-0.23); BASOPHILS PERCENT AUTO 0 % (0-2); EOSINOPHILS ABSOLUTE AUTO 0.06 K/mm3 (0.00-0.68); EOSINOPHILS PERCENT AUTO 1 % (0-6); Hematocrit 36.9 % (37.0-53.0); Hemoglobin 11.8 g/dL (13.5-17.5); IMMATURE GRAN ABSOLUTE AUTO 0.16 K/mm3 (0.00-0.10); IMMATURE GRAN PERCENT AUTO 2 % (0-1); LYMPHOCYTES ABSOLUTE AUTO 1.51 K/mm3 (0.84-5.20); LYMPHOCYTES PERCENT AUTO 15 % (21-46); MONOCYTES ABSOLUTE AUTO 0.94 K/mm3 (0.16-1.47); MONOCYTES PERCENT AUTO 10 % (4-13); Mean Corpuscular Volume 91 fL (80-100); Mean Platelet Volume 9.4 fL (9.1-12.4); NEUTROPHILS ABSOLUTE AUTO 7.13 K/mm3 (1.96-9.15); NEUTROPHILS PERCENT AUTO 73 % (41-73); Platelet Count 576 K/mm3 (150-400); RDW Coefficient Variation 15.8 % (11.7-14.2); RDW Standard Deviation 52.6 fL (35.1-46.3); Red Blood Cell Count 4.07 M/mm3 (4.30-5.90); White Blood Cell Count 9.83 K/mm3 (4.00-11.30)
[2018-09-06 06:19] LABS: Alanine Aminotransfer (ALT/SGP 10 U/L (12-78); Albumin/Globulin Ratio 0.6 (0.8-1.8); Alk Phos 62 U/L (50-136); Anion Gap 5 mmol/L (6-16); Aspartate Aminotrans (AST/SGOT 10 U/L (12-37); Bilirubin, Total 0.2 mg/dL (0.1-1.0); Blood Urea Nitrogen 5 mg/dL (8-24); Bun/Creatinine Ratio 8.8 (12.0-20.0); CO2, Blood 32 mmol/L (21-32); Calcium, Blood 7.9 mg/dL (8.5-10.1); Chloride, Blood 105 mmol/L (98-108); Creatinine, Blood 0.57 mg/dL (0.60-1.20); Globulin, Blood 3.2 g/dL (2.2-4.0); Glomerular Filtration Rate >60 (60-); Glucose, Blood 96 mg/dL (70-99); Potassium, Blood 3.4 mmol/L (3.5-5.5); Sodium, Blood 142 mmol/L (136-145); Total Protein, Blood 5.2 g/dL (6.4-8.2)
--- NOTE | 2018-09-06 07:00 | NUR ---
PT REPORT FROM NURYS CHRISTIANSEN. ASSUMED PT CARE.
--- NOTE | 2018-09-06 07:12 | NUR ---
RESP STAFF TO ROOM FOR PT REQUESTED NEB. PT HAS NO COMPLAINTS AT THIS TIME.
--- NOTE | 2018-09-06 07:50 | NUR ---
ASSESSMENT CHARTED. PT HAS NO COMPLAINTS AT THIS TIME. ABD DISTENDED. 20G TO RIGHT WRIST. 1L NC O2 NOTED. BRIM EDGE TRIMMER AT BEDSIDE FOR VS.
--- NOTE | 2018-09-06 08:51 | NUR ---
PT MEDICATED PER EMAR BY OTHER STAFF FOR PRIMARY RN.
--- NOTE | 2018-09-06 10:36 | NUR ---
CARE ASSUMED OF PATIENT AT APPROXIMATELY 0915. PT ASSESSED BY THIS RN. SHIFT ASSESSMENT DOCUMENTATION BY AFSHAN BLACKMON RN REVIEWED. THIS RN AGREES WITH DOCUMENTATION BY AFSHAN BLACKMON RN. BOWEL SOUNDS ARE HYPO ACTIVE AND TYMPANIC. WILL CONTINUE TO MONITOR.
--- NOTE | 2018-09-06 16:51 | NUR ---
SHIFT SUMMARY PT REPORTS PAIN HAS BEEN INCREASED THIS SHIFT, PT IS GETTING IV MORPHINE FOR PAIN MANAGEMENT. ABD REMAINS DISTENDED AND TENDER. PT IS INDEPENDENT WHEN UP TO THE BEDSIDE COMMODE. DR. CHRISTENSEN WAS RE-CONSULTED THIS SHIFT. VSS. WILL MONITOR UNTIL REPORT.
--- NOTE | 2018-09-07 04:58 | NUR ---
PT HAD NO ACUTE CHANGES T/O NIGHT; VSS. PT CONT TO HAVE MULTIPLE LIQ BM'S, STOOL IS BECOMING SLIGHTLY THICKER IN CONSISTANCY. ABD IS DISTENDED, SOFT TO PALP. PT HAD NO C/O N/V, REP ABD PAIN MINIMAL. R FOOT PAIN MGD PER EMAR. PT UP OOB W/SBA, RAND WELL. PT USING CALL LIGHT FOR ASSISTANCE, WILL CONT TO MONITOR UNTIL REP GIVEN TO ONCOMING RN.
[2018-09-07 05:55] LABS: BASOPHILS ABSOLUTE AUTO 0.02 K/mm3 (0.00-0.23); BASOPHILS PERCENT AUTO 0 % (0-2); EOSINOPHILS ABSOLUTE AUTO 0.06 K/mm3 (0.00-0.68); EOSINOPHILS PERCENT AUTO 1 % (0-6); Hematocrit 36.3 % (37.0-53.0); Hemoglobin 11.7 g/dL (13.5-17.5); IMMATURE GRAN ABSOLUTE AUTO 0.14 K/mm3 (0.00-0.10); IMMATURE GRAN PERCENT AUTO 2 % (0-1); LYMPHOCYTES ABSOLUTE AUTO 2.07 K/mm3 (0.84-5.20); LYMPHOCYTES PERCENT AUTO 25 % (21-46); MONOCYTES ABSOLUTE AUTO 0.81 K/mm3 (0.16-1.47); MONOCYTES PERCENT AUTO 10 % (4-13); Mean Corpuscular HGB Conc 32.2 g/dL (31.5-36.5); Mean Corpuscular Volume 90 fL (80-100); Mean Platelet Volume 9.1 fL (9.1-12.4); NEUTROPHILS ABSOLUTE AUTO 5.13 K/mm3 (1.96-9.15); NEUTROPHILS PERCENT AUTO 62 % (41-73); Platelet Count 541 K/mm3 (150-400); RDW Coefficient Variation 15.9 % (11.7-14.2); RDW Standard Deviation 52.4 fL (35.1-46.3); Red Blood Cell Count 4.03 M/mm3 (4.30-5.90); White Blood Cell Count 8.23 K/mm3 (4.00-11.30)
[2018-09-07 06:30] LABS: Alanine Aminotransfer (ALT/SGP 9 U/L (12-78); Albumin/Globulin Ratio 0.6 (0.8-1.8); Alk Phos 64 U/L (50-136); Anion Gap 6 mmol/L (6-16); Aspartate Aminotrans (AST/SGOT 9 U/L (12-37); Bilirubin, Total 0.2 mg/dL (0.1-1.0); Blood Urea Nitrogen 3 mg/dL (8-24); Bun/Creatinine Ratio 5.4 (12.0-20.0); CO2, Blood 31 mmol/L (21-32); Calcium, Blood 7.8 mg/dL (8.5-10.1); Chloride, Blood 107 mmol/L (98-108); Creatinine, Blood 0.55 mg/dL (0.60-1.20); Globulin, Blood 3.2 g/dL (2.2-4.0); Glomerular Filtration Rate >60 (60-); Glucose, Blood 87 mg/dL (70-99); Potassium, Blood 3.4 mmol/L (3.5-5.5); Sodium, Blood 144 mmol/L (136-145); Total Protein, Blood 5.2 g/dL (6.4-8.2)
--- NOTE | 2018-09-07 15:11 | NUR ---
PICC LINE BEING PLACED NOW BY PICC RN.
--- NOTE | 2018-09-07 17:56 | NUR ---
SHIFT SUMMARY NO ACUTE CHANGES TODAY. VSS. MEDICATING WITH TYLENOL AND IV MORPHINE FOR PAIN. ADVANCED TO FULL LIQ DIET. PICC LINE PLACED TODAY FOR CPN. CPN INFUSING PER ORDERS. PT STILL PASSING GAS AND HAVING LIQ STOOLS. UP TO BSC WITH SBA. PLAN IS TO HAVE SURGERY ON Monday09/11/[address] CHRISTENSEN. USES CALL LIGHT APPROPRIATELY.
[2018-09-08 06:01] LABS: BASOPHILS ABSOLUTE AUTO 0.03 K/mm3 (0.00-0.23); BASOPHILS PERCENT AUTO 0 % (0-2); EOSINOPHILS ABSOLUTE AUTO 0.04 K/mm3 (0.00-0.68); EOSINOPHILS PERCENT AUTO 0 % (0-6); Hemoglobin 11.8 g/dL (13.5-17.5); IMMATURE GRAN ABSOLUTE AUTO 0.12 K/mm3 (0.00-0.10); IMMATURE GRAN PERCENT AUTO 1 % (0-1); LYMPHOCYTES ABSOLUTE AUTO 1.82 K/mm3 (0.84-5.20); LYMPHOCYTES PERCENT AUTO 20 % (21-46); MONOCYTES PERCENT AUTO 10 % (4-13); Mean Corpuscular HGB 28.6 pg (26.0-34.0); Mean Corpuscular HGB Conc 31.1 g/dL (31.5-36.5); Mean Corpuscular Volume 92 fL (80-100); Mean Platelet Volume 9.3 fL (9.1-12.4); NEUTROPHILS ABSOLUTE AUTO 6.17 K/mm3 (1.96-9.15); NEUTROPHILS PERCENT AUTO 68 % (41-73); Platelet Count 594 K/mm3 (150-400); RDW Coefficient Variation 15.9 % (11.7-14.2); RDW Standard Deviation 53.9 fL (35.1-46.3); Red Blood Cell Count 4.13 M/mm3 (4.30-5.90); White Blood Cell Count 9.08 K/mm3 (4.00-11.30)
--- NOTE | 2018-09-08 06:02 | NUR ---
SUMMARY: NO ACUTE CHANGE THIS SHIFT. VSS. PT HAD A HARD TIME SLEEPING DUE TO PAIN IN R FOOT. MEDICATED WITH MORPHINE PRN. PT CONTINUES TO HAVE FREQUENT LIQUID STOOLS. CPN IS INFUSING AND PT TOLERATING FULL LIQUID DIET. PT ABD IS DISTENDED, NO REPORT OF NAUSEA THIS SHIFT.PT A/O, USING CALL LIGHT. NO SAFETY CONCERNS AT THIS TIME.
[2018-09-08 06:18] LABS: Alanine Aminotransfer (ALT/SGP 10 U/L (12-78); Albumin, Blood 2.1 g/dL (3.4-5.0); Albumin/Globulin Ratio 0.6 (0.8-1.8); Alk Phos 66 U/L (50-136); Anion Gap 7 mmol/L (6-16); Aspartate Aminotrans (AST/SGOT 7 U/L (12-37); Bilirubin, Total 0.1 mg/dL (0.1-1.0); Blood Urea Nitrogen 5 mg/dL (8-24); Bun/Creatinine Ratio 10.1 (12.0-20.0); CO2, Blood 31 mmol/L (21-32); Calcium, Blood 8.1 mg/dL (8.5-10.1); Chloride, Blood 106 mmol/L (98-108); Globulin, Blood 3.4 g/dL (2.2-4.0); Glomerular Filtration Rate >60 (60-); Glucose, Blood 103 mg/dL (70-99); Magnesium, Blood 2.4 mg/dL (1.6-2.4); Phosphorus, Blood 2.8 mg/dL (2.5-4.9); Potassium, Blood 3.5 mmol/L (3.5-5.5); Sodium, Blood 144 mmol/L (136-145); Total Protein, Blood 5.5 g/dL (6.4-8.2); Triglycerides 109 mg/dL (30-160)
--- NOTE | 2018-09-08 17:29 | NUR ---
SHIFT SUMMARY. PT PASSING GAS AND LIQUID STOOLS. PT TRANSFERING TO BSC WITHOUT SOB. PT ASKED FOR BREATHING TREATMENT X1. COURSE LUNG SOUNDS. ENCOURAGE AMBULATION, FLUTTER VALVE, AND INCENTIVE SPIROMETRY. PT C/O RIGHT LEG PAIN THROUGHOUT SHIFT. MEDICATED WITH MORPHINE X2 DURING SHIFT. CPN INFUSING INTO RIGHT ARM AT 75ML/HR.
[2018-09-09 05:47] LABS: BASOPHILS ABSOLUTE AUTO 0.03 K/mm3 (0.00-0.23); BASOPHILS PERCENT AUTO 0 % (0-2); EOSINOPHILS ABSOLUTE AUTO 0.04 K/mm3 (0.00-0.68); EOSINOPHILS PERCENT AUTO 1 % (0-6); Hematocrit 36.1 % (37.0-53.0); Hemoglobin 11.7 g/dL (13.5-17.5); IMMATURE GRAN PERCENT AUTO 3 % (0-1); LYMPHOCYTES ABSOLUTE AUTO 2.08 K/mm3 (0.84-5.20); LYMPHOCYTES PERCENT AUTO 23 % (21-46); MONOCYTES ABSOLUTE AUTO 0.78 K/mm3 (0.16-1.47); MONOCYTES PERCENT AUTO 9 % (4-13); Mean Corpuscular HGB 29.2 pg (26.0-34.0); Mean Corpuscular HGB Conc 32.4 g/dL (31.5-36.5); Mean Corpuscular Volume 90 fL (80-100); Mean Platelet Volume 9.3 fL (9.1-12.4); NEUTROPHILS ABSOLUTE AUTO 5.65 K/mm3 (1.96-9.15); NEUTROPHILS PERCENT AUTO 64 % (41-73); Platelet Count 618 K/mm3 (150-400); RDW Coefficient Variation 15.7 % (11.7-14.2); RDW Standard Deviation 51.8 fL (35.1-46.3); Red Blood Cell Count 4.01 M/mm3 (4.30-5.90); White Blood Cell Count 8.88 K/mm3 (4.00-11.30)
--- NOTE | 2018-09-09 06:02 | NUR ---
SUMMARY: NO CHANGE TONIGHT. VSS, A/O. PT CONTINUES TO FREQUENTLY USE COMMODE INDEPENDENTLY, LIQUID BMS. REPORTS NEUROPATHY PAIN IN R FOOT. MEDICATED PER EMAR. PT SLEPT BETTER TONIGHT. I.S. AND FLUTTER VALVE ENCOURAGED. PT LUNGS ARE COURSE, STABLE ON 1L O2. NO SAFETY CONCERNS AT THIS TIME
[2018-09-09 06:13] LABS: Alanine Aminotransfer (ALT/SGP 13 U/L (12-78); Albumin, Blood 2.2 g/dL (3.4-5.0); Albumin/Globulin Ratio 0.6 (0.8-1.8); Alk Phos 68 U/L (50-136); Anion Gap 4 mmol/L (6-16); Aspartate Aminotrans (AST/SGOT 13 U/L (12-37); Bilirubin, Total 0.1 mg/dL (0.1-1.0); Blood Urea Nitrogen 8 mg/dL (8-24); Bun/Creatinine Ratio 18.3 (12.0-20.0); CO2, Blood 31 mmol/L (21-32); Calcium, Blood 8.2 mg/dL (8.5-10.1); Chloride, Blood 107 mmol/L (98-108); Creatinine, Blood 0.44 mg/dL (0.60-1.20); Globulin, Blood 3.6 g/dL (2.2-4.0); Glomerular Filtration Rate >60 (60-); Glucose, Blood 126 mg/dL (70-99); Magnesium, Blood 2.4 mg/dL (1.6-2.4); Phosphorus, Blood 2.8 mg/dL (2.5-4.9); Potassium, Blood 4.6 mmol/L (3.5-5.5); Sodium, Blood 142 mmol/L (136-145); Total Protein, Blood 5.8 g/dL (6.4-8.2)
--- NOTE | 2018-09-09 11:45 | NUR ---
DISCUSSED PT'S STATUS WITH DR PATIÑO.
--- NOTE | 2018-09-09 17:37 | NUR ---
SHIFT SUMMARY PT HAS BEEN UP TO BEDSIDE COMMODE MULTIPLE TIMES TODAY. TRANSFERS ON OWN. PT TOLERATING FLUIDS AND SOUP. PT HAD BREATHING TREATMENT THIS MORNING AND HAS BEEN ON O2 TODAY. PAIN HAS BEEN MANAGED WITH MEDICATIONS PER ORDERS. SEE EMAR. FAMILY HAS BEEN IN TO SEE PT TODAY. PT HAS DIFFICULTY VERBALLY COMMUNICATING D/T HX OF CVI. SEE HX.
[2018-09-10 06:02] LABS: Magnesium, Blood 2.4 mg/dL (1.6-2.4)
[2018-09-10 06:03] LABS: Phosphorus, Blood 3.4 mg/dL (2.5-4.9)
--- NOTE | 2018-09-10 06:42 | NUR ---
SHIFT SUMMARY PT A&O X4 T/O SHIFT. ABD SOFT; BTX4. CPN PER ORDERS. PAIN MANAGED PER EMAR. PT REFUSED SCD'S. PT UP TO BSC OFTEN. CALL LIGHT IN REACH; PT DEMONSTRATES USE. O2 VIA NC; CONT. OXIMITRY IN PLACE; PT DENIES SOB. WCTM UNTIL REPORT TO DAY SHIFT RN.
--- NOTE | 2018-09-10 14:30 | NUR ---
PT C/O R FOOT PAIN THROUGHOUT SHIFT. PT REFUSED COLD THERAPY AND ELEVATION. PT ALLOWED HEAT THERAPY AND STATED SLIGHT RELIEF. FAMILY AT BEDSIDE
--- NOTE | 2018-09-10 17:08 | NUR ---
DR CHRISTENSEN IN TO SEE PT. STATES SURG WILL BE FIRST THING TOMORROW MORNING.
--- NOTE | 2018-09-10 18:33 | NUR ---
PT REQUESTING PAIN MEDS FOR 9/10 R FOOT PAIN. OFFERED HEAT/COLD THERAPY, AND ELEVATION BUT PATIENT DECLINED. NEXT DOSE OF PAIN MEDS NOT DUE FOR ANOTHER 2 HRS.
[2018-09-11 06:31] LABS: BASOPHILS ABSOLUTE AUTO 0.04 K/mm3 (0.00-0.23); BASOPHILS PERCENT AUTO 0 % (0-2); EOSINOPHILS ABSOLUTE AUTO 0.08 K/mm3 (0.00-0.68); EOSINOPHILS PERCENT AUTO 1 % (0-6); Hematocrit 39.4 % (37.0-53.0); IMMATURE GRAN ABSOLUTE AUTO 0.34 K/mm3 (0.00-0.10); IMMATURE GRAN PERCENT AUTO 3 % (0-1); LYMPHOCYTES ABSOLUTE AUTO 3.04 K/mm3 (0.84-5.20); LYMPHOCYTES PERCENT AUTO 22 % (21-46); MONOCYTES PERCENT AUTO 8 % (4-13); Mean Corpuscular Volume 88 fL (80-100); Mean Platelet Volume 9.5 fL (9.1-12.4); NEUTROPHILS ABSOLUTE AUTO 9.01 K/mm3 (1.96-9.15); NEUTROPHILS PERCENT AUTO 66 % (41-73); Platelet Count 582 K/mm3 (150-400); RDW Coefficient Variation 15.8 % (11.7-14.2); RDW Standard Deviation 50.5 fL (35.1-46.3); Red Blood Cell Count 4.49 M/mm3 (4.30-5.90); White Blood Cell Count 13.61 K/mm3 (4.00-11.30)
--- NOTE | 2018-09-11 06:35 | NUR ---
PT TO DAY SURGERY [id number]
--- NOTE | 2018-09-11 06:37 | NUR ---
PT TO DAY SURGERY VIA [facility].
--- NOTE | 2018-09-11 06:38 | NUR ---
PT VSS T/O NIGHT. PAIN MGD PER EMAR. ABD SOFT LESS DISTENDED, PT HAD 1 BM THIS SHIFT. PT NPO POST MIDNIGHT FOR PLAN FOR OR TODAY. PT TO DAY SURGERY THIS AM. WILL REPORT TO DAY RN.
--- NOTE | 2018-09-11 07:00 | NUR ---
PT TO SEE HIM IN DAY SURG TAKEN BACK
[2018-09-11 07:05] LABS: Albumin, Blood 2.8 g/dL (3.4-5.0); Anion Gap 6 mmol/L (6-16); Blood Urea Nitrogen 13 mg/dL (8-24); CO2, Blood 31 mmol/L (21-32); Calcium, Blood 9.2 mg/dL (8.5-10.1); Chloride, Blood 102 mmol/L (98-108); Creatinine, Blood 0.54 mg/dL (0.60-1.20); Glomerular Filtration Rate >60 (60-); Glucose, Blood 112 mg/dL (70-99); Phosphorus, Blood 4.2 mg/dL (2.5-4.9); Potassium, Blood 4.6 mmol/L (3.5-5.5); Sodium, Blood 139 mmol/L (136-145)
--- NOTE | 2018-09-11 07:08 | NUR ---
SHIFT SUMMARY NO ACUTE CHANGES THIS SHIFT, VSS, 02 SATS >90% ON RA. PT TO DAY SURGERY THIS AM ON 09/11/18, PT REMAINED NPO AFTER MIDNIGHT, CONTINUED CPN. PT REPORTED OF PAIN IN BLE, MEDICATED PER ORDERS, PT DID NOT REPORT NAUSEA. PT HAD ONE SMALL BOWEL MOVEMENT THIS SHIFT. SBA TO BEDSIDE COMMODE, BED ALARM ON. PT DOES NOT ALWAYS CALL FOR ASSISTANCE, NEEDS REMINDING OCCASIONALLY. HX OF CVA WITH RIGHT SIDED WEAKNESS AND EXPRESSIVE APHASIA.
--- NOTE | 2018-09-11 08:16 | NUR ---
09/11/18 0816 Elayne Acosta PLACED BY BERTIN MUKHERJEE RN.
--- NOTE | 2018-09-11 11:40 | NUR ---
PT ARRIVED BACK TO ROOM 232 PT S/P SIGMOID COLECTOMY WITH OSTOMY PT HAS PROVENA DRESSING MIDLINE CDI AND OSTOMY NO DRAINAGE IN BAG STOMA BEEFY RED PT HAS EPIDURAL PT DENIES PAIN AT THIS TIME PT HAS GOOD SENSATION WITH EPIDURAL
--- NOTE | 2018-09-11 18:00 | NUR ---
PT WATCHING TV FAMILY AT BEDSIDE PT GRANDSON CALLED EARLIER ASKED IF I COULD GIVE INFO PT FAMILY STATED HE WOULD CALL HIM
--- NOTE | 2018-09-11 18:35 | NUR ---
TAlKED WITH DR FERMIN CRAMER PT HAVING STOOL THRU HIS OSTOMY OK TO EAT REG DIET
--- NOTE | 2018-09-11 20:44 | NUR ---
PT REPORTS FULL SENSATION TO ABD AREA. DECREASED SENSATION FROM GROIN TO UPPER-MID THIGH. EPIDURAL INSERTION SITE C/D/I, PT REPORTS FEELING PALPATION AROUND SITE, NO SIGNS OF REDNESS OR INFLAMATION, NO BUBBLING OR ABNORMAL FEELING OF SKIN AROUNS SITE.
[2018-09-12 06:17] LABS: BASOPHILS ABSOLUTE AUTO 0.03 K/mm3 (0.00-0.23); BASOPHILS PERCENT AUTO 0 % (0-2); EOSINOPHILS PERCENT AUTO 0 % (0-6); Hematocrit 35.1 % (37.0-53.0); Hemoglobin 11.4 g/dL (13.5-17.5); IMMATURE GRAN ABSOLUTE AUTO 0.25 K/mm3 (0.00-0.10); IMMATURE GRAN PERCENT AUTO 1 % (0-1); LYMPHOCYTES ABSOLUTE AUTO 1.95 K/mm3 (0.84-5.20); LYMPHOCYTES PERCENT AUTO 9 % (21-46); MONOCYTES ABSOLUTE AUTO 1.41 K/mm3 (0.16-1.47); MONOCYTES PERCENT AUTO 7 % (4-13); Mean Corpuscular HGB 29.2 pg (26.0-34.0); Mean Corpuscular HGB Conc 32.5 g/dL (31.5-36.5); Mean Corpuscular Volume 90 fL (80-100); Mean Platelet Volume 9.9 fL (9.1-12.4); NEUTROPHILS ABSOLUTE AUTO 17.72 K/mm3 (1.96-9.15); NEUTROPHILS PERCENT AUTO 83 % (41-73); Platelet Count 562 K/mm3 (150-400); RDW Standard Deviation 52.2 fL (35.1-46.3); White Blood Cell Count 21.36 K/mm3 (4.00-11.30)
[2018-09-12 06:33] LABS: Anion Gap 4 mmol/L (6-16); Blood Urea Nitrogen 15 mg/dL (8-24); Bun/Creatinine Ratio 26.5 (12.0-20.0); CO2, Blood 31 mmol/L (21-32); Calcium, Blood 8.6 mg/dL (8.5-10.1); Chloride, Blood 103 mmol/L (98-108); Creatinine, Blood 0.57 mg/dL (0.60-1.20); Glomerular Filtration Rate >60 (60-); Glucose, Blood 123 mg/dL (70-99); Potassium, Blood 4.6 mmol/L (3.5-5.5); Sodium, Blood 138 mmol/L (136-145)
--- NOTE | 2018-09-12 07:21 | NUR ---
SHIFT SUMMARY PT IS POD 1 SIGMOID COLECTOMY W/ COLOSTOMY PLACEMENT. PT IS PRODUCING LARGE AMOUNTS OF BROWN PUDDING-LIKE STOOL AND FLATUS. EPIDURAL IN PLACE, PT RATES HIS PAIN HIGH THIS MORNING BUT HE APPEARS COMFORTABLE AT REST. HE REPORTS DECREASED SENSATION TO L1-L2 OVERNIGHT, ABD SENSATION INTACT. TPN INFUSING PER ORDERS. HIS ABD DISTENTION IS MUCH IMPROVED. PT TAKING CLEAR LIQUIDS AT THIS TIME, TOLERATING WELL. EXPRESSIVE APHASIA, UNCHANGED FROM BASELINE. REPORT PASSED TO ONCOMING SHIFT.
--- NOTE | 2018-09-12 17:35 | NUR ---
SUMMARY PATIENT HAS DENIED NEED FOR PAIN MED POST OP. PATIENT STATES NO PAIN UNLESS MOVING OR COUGHING. RAND PO FLUIDS WITHOUT NAUSEA
--- NOTE | 2018-09-12 18:15 | NUR ---
1800 SUMMARY PATIENT REPORTS PAIN 8-10/10 THOUGH APPEARS RELAXED, WATCHING TV AND CONVERSING WITH VISITORS. ON FACE SCALE PATIENT APPEARS LEVEL 3-4/10. PATIENT DIFFICULT TO UNDERSTAND DUE TO EXPRESSIVE APHASIA. OSTOMY BEEEFY PINK STOMA WITH SOFT BROWN STOOL OUTPUT. PATIENT RAND PO FOOD AND FLUID WITHOUT NAUSEA
--- NOTE | 2018-09-13 04:37 | NUR ---
SUMMARY: PT IS POD2 FOR SIGMOID COLECTOMY. DOING WELL. EPIDURAL IS MANAGING PAIN, ALTHOUGH PT REPORTS ON GOING NEUROPATHY PAIN IN HIS R FOOT. MEDICATED PER EMAR. PT WOUND VAC AND OSTOMY DEVICE CHANGED THIS SHIFT DUE TO LEAK. STOMA IS WNL AND DRAINING LIQ BROWN STOOL. WAS ABLE TO DO SOME EDUCATING WITH PT WHILE I REPLACED PT'S COLOSTOMY BAG. EPIDURAL CHECKS WNL.TYSON IS DRAINING, TPN INFUSING. VSS, NO ACUTE CONCERNS THIS AM.
[2018-09-13 05:47] LABS: BASOPHILS ABSOLUTE AUTO 0.05 K/mm3 (0.00-0.23); BASOPHILS PERCENT AUTO 0 % (0-2); EOSINOPHILS ABSOLUTE AUTO 0.09 K/mm3 (0.00-0.68); EOSINOPHILS PERCENT AUTO 1 % (0-6); Hematocrit 35.3 % (37.0-53.0); Hemoglobin 11.3 g/dL (13.5-17.5); IMMATURE GRAN ABSOLUTE AUTO 0.24 K/mm3 (0.00-0.10); IMMATURE GRAN PERCENT AUTO 2 % (0-1); LYMPHOCYTES ABSOLUTE AUTO 2.91 K/mm3 (0.84-5.20); LYMPHOCYTES PERCENT AUTO 20 % (21-46); MONOCYTES ABSOLUTE AUTO 1.22 K/mm3 (0.16-1.47); MONOCYTES PERCENT AUTO 8 % (4-13); Mean Corpuscular Volume 91 fL (80-100); Mean Platelet Volume 10.1 fL (9.1-12.4); NEUTROPHILS ABSOLUTE AUTO 9.96 K/mm3 (1.96-9.15); NEUTROPHILS PERCENT AUTO 69 % (41-73); Platelet Count 497 K/mm3 (150-400); RDW Coefficient Variation 16.5 % (11.7-14.2); RDW Standard Deviation 54.5 fL (35.1-46.3); Red Blood Cell Count 3.89 M/mm3 (4.30-5.90); White Blood Cell Count 14.47 K/mm3 (4.00-11.30)
[2018-09-13 06:05] LABS: Albumin, Blood 2.4 g/dL (3.4-5.0); Anion Gap 2 mmol/L (6-16); Blood Urea Nitrogen 12 mg/dL (8-24); Bun/Creatinine Ratio 18.2 (12.0-20.0); CO2, Blood 29 mmol/L (21-32); Calcium, Blood 8.4 mg/dL (8.5-10.1); Chloride, Blood 109 mmol/L (98-108); Creatinine, Blood 0.66 mg/dL (0.60-1.20); Glomerular Filtration Rate >60 (60-); Glucose, Blood 133 mg/dL (70-99); Phosphorus, Blood 3.8 mg/dL (2.5-4.9); Potassium, Blood 4.3 mmol/L (3.5-5.5); Sodium, Blood 140 mmol/L (136-145)
--- NOTE | 2018-09-13 09:57 | NUR ---
ROUNDING: DOCTOR IN ROOM TO SEE PATIENT. PT TO ADVANCE DIET FOR LUNCH. WILL WEAN CPN WHEN RAND DIET. LACTULISE TO BE DC'D. OSTOMY LEAKING, CHANGED WAFER AND APPLIANCE NEEDED. PATIENT TEACHING DONE, WILL CONT TO REINFORCE. PT UP TO CHAIR WITH THERAPY, RAND WELL.
--- NOTE | 2018-09-13 13:00 | NUR ---
portable imaging complete.
--- NOTE | 2018-09-13 15:26 | NUR ---
OSTOMY/WOUND: OSTOMY APPLIANCE CONTINUES TO LEAK R/T WOUND VAC PLACEMENT. NEW APPLIANCE APPLIED FOR THE SECOND TIME THIS SHIFT. PROVENA NOT SEALING WHEN OSTOMY APPLIANCE PLACED UNDER DRESSING. WOUND VAC CHANGED TO AQUACEL TO PREVENT DRAINAGE FROM OSTOMY INTO INCISION AND PROVIDE ADEQUATE SEAL FOR OSTOMY WAFER. SKIN CARE PERFORMED BOWEL DRAINAGE HAS BEEN FREQUENTLY LEAKING ONTO SKIN. LINENS CHANGED NEEDED.
--- NOTE | 2018-09-13 17:13 | NUR ---
PT HAS BEEN STABLE THIS SHIFT. WORKED WITH PT TO GET UP TO CHAIR. PT HAVING SIGNIFICANT WEAKNESS IN RIGHT SIDE THAT SEEMS TO BE WORSENED BY EPIDERAL. EPIDERAL USED APPROPRIATELY AND REPORTED EFFECTIVE FOR PAIN. SITE WNL. PLAN TO DC TOMORROW AM. PT TO HAV PLAVIX AND LOVENOX HELD UNTIL AFTER REMOVAL. PT OSTOMY WITH COPIOUS LIQUID BROWN STOOL, DC'D LACTULOSE. PT ADVANCED TO REG DIET, RAND WELL. PROVENA CANGED TO AQUACEL R/T INABLILITY TO ACHIEVE SEAL WITH OSTOMY APPLIANCE AND MULTIPLE LEAKS. PT HAD NEGATIVE CXR. CPN DC'D. CBG STABLE, CHANGED TO AC/HS. REPEAT LABS FOR AM.
[2018-09-14 05:20] LABS: BASOPHILS ABSOLUTE AUTO 0.08 K/mm3 (0.00-0.23); BASOPHILS PERCENT AUTO 1 % (0-2); EOSINOPHILS ABSOLUTE AUTO 0.27 K/mm3 (0.00-0.68); EOSINOPHILS PERCENT AUTO 2 % (0-6); Hematocrit 35.3 % (37.0-53.0); Hemoglobin 11.4 g/dL (13.5-17.5); IMMATURE GRAN ABSOLUTE AUTO 0.23 K/mm3 (0.00-0.10); IMMATURE GRAN PERCENT AUTO 2 % (0-1); LYMPHOCYTES ABSOLUTE AUTO 2.77 K/mm3 (0.84-5.20); LYMPHOCYTES PERCENT AUTO 19 % (21-46); MONOCYTES ABSOLUTE AUTO 1.15 K/mm3 (0.16-1.47); MONOCYTES PERCENT AUTO 8 % (4-13); Mean Corpuscular HGB 29.1 pg (26.0-34.0); Mean Corpuscular HGB Conc 32.3 g/dL (31.5-36.5); Mean Corpuscular Volume 90 fL (80-100); Mean Platelet Volume 10.3 fL (9.1-12.4); NEUTROPHILS ABSOLUTE AUTO 9.81 K/mm3 (1.96-9.15); NEUTROPHILS PERCENT AUTO 69 % (41-73); Platelet Count 451 K/mm3 (150-400); RDW Coefficient Variation 16.4 % (11.7-14.2); RDW Standard Deviation 53.6 fL (35.1-46.3); Red Blood Cell Count 3.92 M/mm3 (4.30-5.90); White Blood Cell Count 14.31 K/mm3 (4.00-11.30)
--- NOTE | 2018-09-14 05:48 | NUR ---
SUMMARY: PT IS POD3 FOR SIGMOID COLECTOMY. Q4 EPIDURAL CHECKS WNL. VSS. PT DENIES PAIN AT ABD, REPORT SOME NEUROPATHY PAIN AT R FOOT. POSITIONED IN BED FOR COMFORT. MIDLINE DRESSING AND WOUND VAC WNL. PICC INFUSING TKO FLUID AND ANTIBIOTICS, PLAN IS FOR EPIDURAL OUT TODAY. PT TOLERATING REG DIET, NO NAUSEA. NO CONCERNS AT THIS TIME
[2018-09-14 06:01] LABS: Albumin, Blood 2.5 g/dL (3.4-5.0); Anion Gap 4 mmol/L (6-16); Blood Urea Nitrogen 11 mg/dL (8-24); Bun/Creatinine Ratio 17.2 (12.0-20.0); CO2, Blood 29 mmol/L (21-32); Calcium, Blood 8.7 mg/dL (8.5-10.1); Chloride, Blood 108 mmol/L (98-108); Creatinine, Blood 0.64 mg/dL (0.60-1.20); Glomerular Filtration Rate >60 (60-); Glucose, Blood 114 mg/dL (70-99); Phosphorus, Blood 3.5 mg/dL (2.5-4.9); Potassium, Blood 4.1 mmol/L (3.5-5.5); Sodium, Blood 141 mmol/L (136-145)
--- NOTE | 2018-09-14 07:10 | NUR ---
REPORT AND WALKING ROUNDS WITH PRAVEEN CHRISTIANSEN. ASSUMED PT CARE. PT WAS ASLEEP UPON ENTERING ROOM. WAKES TO VERBAL STIMULI.
--- NOTE | 2018-09-14 07:30 | NUR ---
DR BOYD TO ROOM FOR EPIDURAL ASSESSMENT AND REMOVAL. PT RAND WELL. PLAN TO START ORAL PAIN MEDS THIS AM AND DENISE TYSON LATER TODAY. ASSESSMENT CHARTED. PT LYING IN BED.
--- NOTE | 2018-09-14 08:19 | NUR ---
PT MEDICATED PER EMAR. PT EATING BREAKFAST. PAIN MEDS PROVIDED PER REQUEST. CALL LIGHT IN REACH.
--- NOTE | 2018-09-14 09:24 | NUR ---
DR SUMMERS TO ROOM FOR EVAL AND ASSESSMENT. PLAN TO DC TYSON AROUND 1330, CONSULT PT/OT, DISCUSS STOOL OUTPUT WITH SURGEON AND TO STOP ABX.
--- NOTE | 2018-09-14 10:23 | NUR ---
DR CHRISTENSEN TO ROOM. PROVIDER AWARE OF STOOL CHANGES. NO NEW ORDERS. PLAN FOR PT/OT TO EVAL AND CONTINUE TO SEE/TREAT.
--- NOTE | 2018-09-14 11:15 | NUR ---
OT TO ROOM FOR EVAL AND TREATMENT.
--- NOTE | 2018-09-14 12:24 | NUR ---
PT MEDICATED WITH 1 NORCO FOR C/O PAIN. PT SITTING UP IN CHAIR EATING LUNCH.
--- NOTE | 2018-09-14 13:21 | NUR ---
TYSON DC PER ORDERS. PT RAND WELL. URINAL PALCED AT BEDSIDE.
--- NOTE | 2018-09-14 14:17 | NUR ---
PT MEDICATED BY ANOTHER RN FOR THIS RN. PT HAD NO COMPLAINTS.
--- NOTE | 2018-09-14 15:20 | NUR ---
OT TO ROOM FOR EVAL AND ASSESSMENT.
--- NOTE | 2018-09-14 15:58 | NUR ---
recvd report from previous RN Yassine, assumed care of pt, pt lying in bed watching TV, a/o x 4, denies pain, call light within reach, bed rails up x 2, bed in lowest position
--- NOTE | 2018-09-14 18:43 | NUR ---
since assuming care of pt at 1600, pt remained a/o x 4, pleasant/cooperative, somewhat flat affect per baseline, medicated for pain x 1, when assessed reported 9/10 pain
[2018-09-15 06:26] LABS: BASOPHILS ABSOLUTE AUTO 0.06 K/mm3 (0.00-0.23); BASOPHILS PERCENT AUTO 1 % (0-2); EOSINOPHILS ABSOLUTE AUTO 0.25 K/mm3 (0.00-0.68); EOSINOPHILS PERCENT AUTO 2 % (0-6); Hematocrit 36.2 % (37.0-53.0); Hemoglobin 11.7 g/dL (13.5-17.5); IMMATURE GRAN ABSOLUTE AUTO 0.23 K/mm3 (0.00-0.10); IMMATURE GRAN PERCENT AUTO 2 % (0-1); LYMPHOCYTES PERCENT AUTO 18 % (21-46); MONOCYTES PERCENT AUTO 8 % (4-13); Mean Corpuscular HGB 28.4 pg (26.0-34.0); Mean Corpuscular HGB Conc 32.3 g/dL (31.5-36.5); Mean Corpuscular Volume 88 fL (80-100); Mean Platelet Volume 10.7 fL (9.1-12.4); NEUTROPHILS ABSOLUTE AUTO 8.91 K/mm3 (1.96-9.15); NEUTROPHILS PERCENT AUTO 70 % (41-73); Platelet Count 425 K/mm3 (150-400); RDW Coefficient Variation 16.1 % (11.7-14.2); RDW Standard Deviation 51.6 fL (35.1-46.3); Red Blood Cell Count 4.12 M/mm3 (4.30-5.90); White Blood Cell Count 12.75 K/mm3 (4.00-11.30)
--- NOTE | 2018-09-15 06:31 | NUR ---
SUMMARY PT SLEPT OFF AND ON BETWEEN VOIDING S/P TYSON DCD TODAY. EPIDURAL SITE REMAINS CLEAR.NO C/O PAIN OR NAUSEA TONIGHT.OSTOMY WITH RUST/FONSECA DRMUNIRA NOTED PER DAY RN AND REPORTED TO DR CHRISTENSEN PER SHIFT CHANGE HAND OFF. ALSO OSTOMY PATENT OF MUCUS TONIGHT.STOMA ITSELF REMAINS BEEFY RED AND SLIGHTLY SWOLLEN.
[2018-09-15 06:41] LABS: Albumin, Blood 2.6 g/dL (3.4-5.0); Anion Gap 8 mmol/L (6-16); Blood Urea Nitrogen 11 mg/dL (8-24); Bun/Creatinine Ratio 17.8 (12.0-20.0); CO2, Blood 27 mmol/L (21-32); Chloride, Blood 106 mmol/L (98-108); Creatinine, Blood 0.62 mg/dL (0.60-1.20); Glomerular Filtration Rate >60 (60-); Glucose, Blood 122 mg/dL (70-99); Phosphorus, Blood 3.5 mg/dL (2.5-4.9); Potassium, Blood 4.1 mmol/L (3.5-5.5); Sodium, Blood 141 mmol/L (136-145)
--- NOTE | 2018-09-15 07:49 | NUR ---
ASSUMED CARE FROM NOC RN. PT C/O CONTINUING PAIN 01/22. WILL MONITOR AND MEDICATE PER EMAR. PT LUNGS ARE COARSE THROUGHOUT, RT TO DO NEB TREATMENT, WILL REASSESS AFTER.
--- NOTE | 2018-09-15 09:21 | NUR ---
dr zamora by to see pt called pt's to talk to her about ostomy care and his path report
--- NOTE | 2018-09-15 09:26 | NUR ---
PT UP IN CHAIR FOR BREAKFAST. TOLERATING DIET WELL OSTOMY PUTTING OUT BROWN STOOL WITH BITS OF BLACK SEDEMENT AND MODERATE AMOUNTS OF MUCOUS. PT STATES ONLY SLIGHT PAIN RELIEF FROM PAIN MEDS.
--- NOTE | 2018-09-15 10:28 | NUR ---
PATIENT AMBULATED IN HALLWAY WITH PT. CHANGED HEEL DRESSINGS. PT UP IN CHAIR W. NO COMPLAINTS A THIS TIME
--- NOTE | 2018-09-15 12:05 | NUR ---
OSTOMY EMPTIED. BROWN STOOL PT TOLERATING REGULAR DIET
--- NOTE | 2018-09-15 12:08 | NUR ---
OSTOMY SUPPLIES GIVEN TO PT FOR UPCOMING DISCHARGE. WILL GO OVER INFORMATION WHEN ARRIVES.
--- NOTE | 2018-09-15 19:13 | NUR ---
PT C/O PAIN OF 9/10 THROUGHOUT SHIFT MEDICATED PER EMAR. OSTOMY PUTTING OUT BROWN STOOL WITH BEEFY RED STOMA. EDUCATED PT ON HOW TO EMPTY AND CLEAN OSTOMY BAG. PT DECLINED TO REPEAT DEMONSTRATION.
--- NOTE | 2018-09-16 07:17 | NUR ---
SUMMARY PT REQUIRED CATH R/T RETENTION. NO OTHER ACUTE CHANGES.UNABLE TO TEACH OSTOMY CARE DID NOT VISIT DURING MY SHIFT.
--- NOTE | 2018-09-16 07:54 | NUR ---
DR QUINTANILLA BY TO SEE PATIENT. STATED THAT FROM A SURGICAL STANDPOINT THE PT IS READY TO DC. STATES THAT SHE THINKS SHE CAN COMPLETE OSTOMY CARE FROM WATCHING YOUTUBE VIDEOS. WILL EDUCATE THROUGHOUT SHIFT AND WHEN ARRIVES. MEDICATED FOR PAIN PER EMAR
--- NOTE | 2018-09-16 08:49 | NUR ---
reviewed student nurse Kassidy documentation, educated on care plan completion
--- NOTE | 2018-09-16 09:24 | NUR ---
reviewed nursing home aide Kassidy's documentation, agree with findings, course lungs with expiratory wheezing, encouraged use of IS
--- NOTE | 2018-09-16 10:46 | NUR ---
IN ROOM WITH PT. EDUCATED ON OSTOMY DRAINAGE AND DRESSING CHANGES. STATES SHE IS ABLE TO CARE FOR PT AND OSTOMY.
--- NOTE | 2018-09-16 11:18 | NUR ---
KULDIP NIEVES SPOKE WITH JOSE FROM [facility] TO TALK WITH CARE MANAGEMENT ABOUT HOME HEALTH WITH PATIENT AND FAMILY TOMORROW PRIOR TO DISCHARGE
--- NOTE | 2018-09-16 13:05 | NUR ---
PT UNABLE TO VOID. BLADDER SCAN OF 153. PT STATES NO FEELINGS OF FULLNESS OR URGE TO URINATE. AT BEDSIDE.
--- NOTE | 2018-09-16 15:47 | NUR ---
PT STILL UNABLE TO VOID. POST VOID RESIDUAL OF 264 VIA BLADDER SCAN. PT REPORTS NO DISCOMFORT OR FULLNESS OF BLADDER. WILL CONTINUE TO MONITOR.
--- NOTE | 2018-09-16 17:45 | NUR ---
PT STILL UNABLE TO URINATE W/ C/O OF PAIN AND BLADDER FULLNESS. ST. CATHED PT WITH 425 URINE OUT. PT STATED RELIEF WITH BLADDER EMPTYING. WAS ENCOURAGED TO EMPTY AND CARE FOR OSTOMY WITH HELP FROM STAFF BUT LEFT BEFORE THIS WAS DONE. VSS THROUGHOUT SHIFT
--- NOTE | 2018-09-17 06:51 | NUR ---
LYING IN SEMI FOWLERS WITH EYES CLOSED. STATES THT HE FEELS BETTER THIS MORNING. DENIES FURTHER NEEDS AT THIS TIME. WILL GIVE HAND OFF TO ONCOMING SHIFT USING SCAR.
--- NOTE | 2018-09-17 07:05 | NUR ---
recvd report from previous shift RN Lucinda, pt sleeping in room, bed in lowest position, call light within reach, bed rails up x 2
--- NOTE | 2018-09-17 08:53 | NUR ---
dr ramirez to round on pt, orders for PT eval/tx
[2018-09-17] MEDS ORDERED: Florastor250 MG PO (13:28)
--- NOTE | 2018-09-17 16:00 | NUR ---
vascular access removed WNL by non morse intercept technician Marlee, pt and his provided with discharge instructions, printed materials, ostomy and straigh cath supplied, prescriptions for supplies, prescriptions called to [facility]. pt and demonstrated ostomy appliance change, burping/cleaning/emptying, straight catheterization and state understanding of interventions. pt escorted to awaiting vehicle via wheelchair. pt's took pt's belongins and supplies on cart to awaiting vehicle.
== END 2018-09-17 16:02 | disposition home health service (06) | DRG 329 ==
LOC: ER 18:15 → SURS 22:56 → ERHOLD 22:56 → ICUE 22:56 → SURS 08-28 12:48
PROVIDERS: Family Medicine; Internal Medicine; Nurse Practitioner Acute Care; Physician Assistant; Surgery; ADMIT Internal Medicine
PROC: 0D1N074 Bypass Sigmoid Colon to Cutaneous with Autologous Tissue Substitute, Open Approach (ICD-10-PCS; 2018-09-11)
PROC: 0DTN0ZZ Resection of Sigmoid Colon, Open Approach (ICD-10-PCS; principal; 2018-09-11 07:30)
PROC: 0DTP0ZZ Resection of Rectum, Open Approach (ICD-10-PCS; 2018-09-11 07:30)
DX: C18.7 Malignant neoplasm of sigmoid colon (principal); J96.01 Acute respiratory failure with hypoxia; F33.9 Major depressive disorder, recurrent, unspecified; F11.20 Opioid dependence, uncomplicated; J98.11 Atelectasis; K56.600 Partial intestinal obstruction, unspecified as to cause; E11.9 Type 2 diabetes mellitus without complications; N40.1 Benign prostatic hyperplasia with lower urinary tract symptoms; J44.9 Chronic obstructive pulmonary disease, unspecified; K59.09 Other constipation; R33.9 Retention of urine, unspecified; Z79.4 Long term (current) use of insulin; I69.320 Aphasia following cerebral infarction; Z99.81 Dependence on supplemental oxygen; E87.6 Hypokalemia; E83.39 Other disorders of phosphorus metabolism; D69.6 Thrombocytopenia, unspecified
CPT/HCPCS: 36415; 51703; 71045; 71046; 74018; 74019; 74176; 74177; 80048; 80053; 80069; 81001; 82947; 83605; 83690; 83735; 84100; 84443; 84478; 84484; 85025; 85610; 87086; 88309; 93005; 93010; 94640; 94660; 94667; 94668; 94760; 94762; 96365; 96376; 97162; 97164; 97165; 97530; 97535; 99285-25; J0295; J0696; J1100; J1650; J1815; J1885; J2250; J2270; J2370; J2405; J2543; J2704; J2710; J3010; J3411; J3480; J7030; J7040; J7060; J7120; Q9967